=== PATIENT | female | born 1980 | race Caucasian/White ===

== ENCOUNTER 2020-08-14 08:20 | Outpatient (CLI) | payer OTHER, SELFPAY ==
[2020-08-14 08:55] LABS: Basophils Percent Auto 0.4 % (0.2-1.2); Eosinophils Absolute Auto 0.1 K/mm3 (0-0.3); Eosinophils Percent Auto 1.2 % (0-4.4); Hematocrit 40.6 % (37.0-47.0); Hemoglobin 13.3 g/dL (12.0-15.0); Immature Granulocyte Absolute 0.02 K/mm3 (0.00-0.031); Immature Granulocyte Percent A 0.4 % (0-0.5); Lymphocytes Absolute Auto 1.51 K/mm3 (0.9-3.2); Lymphocytes Percent Auto 31.2 % (18.3-44.2); Mean Corpuscular HGB Conc 32.8 g/dl (32-36); Mean Corpuscular Hemoglobin 30.3 pg (26-34); Mean Corpuscular Volume 92.5 fl (80-100); Mean Platelet Volume 10.3 fl (7.4-10.4); Monocytes Absolute Auto 0.3 K/mm3 (0.1-0.6); Monocytes Percent Auto 5.8 % (2.6-8.5); Platelet Count Result 207 k/mm3 (150-375); Red Blood Count 4.39 M/mm3 (4.2-5.4); Red Cell Distribution Width 12.8 % (11.5-14.5); White Blood Count 4.8 K/mm3 (4.5-10.0)
[2020-08-14 10:17] LABS: Vitamin D 25 Hydroxy 32.3 ng/mL
== END 2020-08-14 08:21 | disposition home or self-care (01) ==
PROVIDERS: PCP Nurse Practitioner; Visit Provider Nurse Practitioner
DX: Z00.00 Encounter for general adult medical examination without abnormal findings (principal); E55.9 Vitamin D deficiency, unspecified
CPT/HCPCS: 36415; 82306; 85025

== ENCOUNTER 2020-11-16 08:06 | Outpatient (CLI) | payer OTHER, SELFPAY ==
--- NOTE | ~2020-11-16 | MM_ITS ---
EXAMINATION: MM screening [facility] BI w tiffanie HISTORY: Screening TECHNIQUE: Craniocaudal and mediolateral oblique 3-D tomosynthesis images were obtained and synthetic 2-D images were generated. CAD analysis was submitted and interpreted. COMPARISON: Comparison to multiple prior studies sequentially, with oldest reviewed study dated 2016. BREAST PARENCHYMAL COMPOSITION: The breasts are heterogeneously dense, which may obscure small masses . FINDINGS: There is no evidence of suspicious mass, calcification, or architectural distortion to sugg est malignancy in either breast. There has been no suspicious interval change. IMPRESSION: 1. No mammographic evidence of malignancy. 2. Recommend routine screening mammography in one year. BI-RADS Category 1: Negative Reviewed, dictated and finalized at location A.
== END 2020-11-16 08:07 | disposition home or self-care (01) ==
LOC: ANHIMG 08:07
PROVIDERS: PCP Nurse Practitioner; Visit Provider Nurse Practitioner
DX: Z12.31 Encounter for screening mammogram for malignant neoplasm of breast (principal)
CPT/HCPCS: 77063; 77067

== ENCOUNTER 2021-09-07 10:28 | Emergency (ER) | payer OTHER, SELFPAY ==
--- NOTE | 2021-09-07 10:32 | ED.URI ---
HPI - URI/Sore Throat General Chief Complaint: Ear Stated Complaint: NECK/SINUS HEADACHE Time Seen by Provider: 09/07/21 10:34 Source: patient, RN notes reviewed and old records reviewed Mode of arrival: ambulatory Limitations: no limitations History of Present Illness HPI Narrative: 41 year old female who presents to [facility] care with complaints of headache in frontal area and behind her eyes for one week duration with sinus pressure and some ear pain. Patient denies any acute sinus drainage, admits to sinus pressure, stuffiness and some post nasal drainage. Patient reports that she has been taking Sudafed, Tylenol sinus and Advil for her symptoms, rates her pain 5/10. Patient states that she has some neck discomfort denies any injury to neck full mobility noted no selling of her gland noted. MD elicited complaint: rhinorrhea, nasal congestion, sinus pain and other (headache) Treatments prior to arrival: cold medicine and other (Sudafed) Related Data Home Medications Medication Instructions Recorded Confirmed L norgest/e.estradiol-e.estrad 1 tablet PO DAILY 09/07/21 09/07/21 [Bri] Allergies Allergy/AdvReac Type Severity Reaction Status Date / Time No Known Allergies Allergy Verified 09/07/21 10:33 Review of Systems Review of Systems: CONSTITUTIONAL: Denies fever, chills, or sweats. EYES: Denies visual changes, redness, or discharge. ENT: Denies rhinorrhea, congestion, sore throat, bilateral ear otalgia, sinus pressure CARDIOVASCULAR: Denies chest pain, palpitations, or edema. RESPIRATORY: Denies cough or dyspnea. GASTROINTESTINAL: Denies abdominal pain, nausea, vomiting, or diarrhea. GENITOURINARY: Denies dysuria or hematuria. SKIN: Denies rash or itching. MUSCULOSKELETAL: Denies back pain, some neck pain, no joint pain, or myalgia. NEUROLOGIC: Positive for frontal headache, no numbness, or weakness. PSYCHIATRIC: Positive for history of anxiety or depression. All systems reviewed & are unremarkable except as noted in HPI and below PMFSH Past Medical History Medical History Anxiety disorder, unspecified Breast nodule Family History Family History Other Carcinoma of colon Family history of cardiovascular disease Family history of chronic obstructive pulmonary disease Family history of dementia Social History Social History (Updated 09/07/21 @ 10:50 by Lupis Orona NP) Smoking status: Never smoker Alcohol intake: never Substance use: never Living arrangements: with family Gender identity (if verbalized by the patient): Female Comments At time of signature, agree with nursing past medical, surgical, social and family history. There is no relevant family history pertinent to the presenting complaint Exam Narrative: GENERAL: Ill-appearing, well-nourished, and in no acute distress. HEAD: Normocephalic, atraumatic. EYES: PERRLA and EOMI. ENT: Nares red with clear rhinorrhea and post nasal drainage no epistaxis. Mucous membranes moist.TM's normal with dull light reflex, throat with some redness no lesions or exudates or tonsil enlargement, post nasal discharge noted. NECK: Supple.no lymphadenopathy CHEST: Clear to auscultation. No respiratory distress.no cough or any tachypnea, SAO2 98% on room air. HEART: Regular rate and rhythm. No murmur heard. Normal peripheral pulses. ABDOMEN: Soft, nontender, nondistended, normal active bowel sounds. EXTREMITIES: Normal range of motion. No edema. SKIN: Warm, dry, no rash. NEURO: No focal deficits. Alert and oriented x3. Course Course Level of Care: Express Care Visit Vital Signs Vital signs: Vital Signs Temperature 36.8 C 09/07/21 10:35 Pulse Rate 103 H 09/07/21 10:35 Respiratory Rate 16 09/07/21 10:35 Blood Pressure 116/76 09/07/21 10:35 Pulse Oximetry 98 09/07/21 10:35 Temperature 36.8 C 09/07/21 10:3
[2021-09-07 10:35] VITALS: BP 116/76; PULSE 103; RESP 16; TEMP 36.8; O2SAT 98
== END 2021-09-07 11:03 | disposition home or self-care (01) ==
PROVIDERS: Emergency Provider Registered Nurse; PCP Nurse Practitioner
DX: J32.9 Chronic sinusitis, unspecified (principal)
CPT/HCPCS: 99213; G0463

== ENCOUNTER 2022-03-07 08:36 | Outpatient (CLI) | payer OTHER, SELFPAY ==
--- NOTE | ~2022-03-07 | MM_ITS ---
EXAMINATION: MM screening [facility] BI w tiffanie HISTORY: Screening mammogram TECHNIQUE: Craniocaudal and mediolateral oblique 3-D tomosynthesis images were obtained and synthetic 2-D images were generated. CAD analysis was submitted and interpreted. COMPARISON: 11/16/2020, 08/26/2018, 06/20/2016 BREAST PARENCHYMAL COMPOSITION: The breasts are heterogeneously dense, which may obscure small masses . FINDINGS: Scattered benign-appearing calcifications are present. There is no suspicious mass, calcifi cation, or architectural distortion to suggest malignancy in either breast. There has been no suspici ous interval change. IMPRESSION: 1. No mammographic evidence of malignancy. 2. Recommend routine screening mammography in one year. BI-RADS Category 2: Benign finding(s). Reviewed, dictated and finalized at location A.
== END 2022-03-07 08:37 | disposition home or self-care (01) ==
PROVIDERS: PCP Family Medicine; Visit Provider Nurse Practitioner
DX: Z12.31 Encounter for screening mammogram for malignant neoplasm of breast (principal)
CPT/HCPCS: 77063; 77067

== ENCOUNTER 2022-08-15 08:30 | Outpatient (CLI) | payer OTHER, SELFPAY ==
[2022-08-15 18:35] LABS: Basophils Percent Auto 0.6 % (0.2-1.2); Eosinophils Absolute Auto 0.1 K/mm3 (0-0.3); Hematocrit 41.1 % (37.0-47.0); Hemoglobin 13.3 g/dL (12.0-15.0); Immature Granulocyte Absolute 0.02 K/mm3 (0.00-0.031); Immature Granulocyte Percent A 0.4 % (0-0.5); Lymphocytes Absolute Auto 1.75 K/mm3 (0.9-3.2); Lymphocytes Percent Auto 33.9 % (18.3-44.2); Mean Corpuscular HGB Conc 32.4 g/dl (32-36); Mean Corpuscular Hemoglobin 30.4 pg (26-34); Mean Corpuscular Volume 93.8 fl (80-100); Mean Platelet Volume 10.9 fl (7.4-10.4); Monocytes Absolute Auto 0.3 K/mm3 (0.1-0.6); Monocytes Percent Auto 5.2 % (2.6-8.5); Neutrophils Percent Auto 58.9 % (45.5-73.1); Platelet Count Result 233 k/mm3 (150-375); Red Blood Count 4.38 M/mm3 (4.2-5.4); Red Cell Distribution Width 13.5 % (11.5-14.5); White Blood Count 5.2 K/mm3 (4.5-10.0)
[2022-08-15 18:55] LABS: Vitamin D 25 Hydroxy 22.5 ng/mL
[2022-08-15 20:23] LABS: Alanine Aminotransferase 45 U/L (6-35); Albumin Level 4.6 g/dL (3.5-5.1); Alkaline Phosphatase 62 U/L (38-126); Anion Gap 9 mmol/L (8-16); Aspartate Amino Transferase 32 U/L (14-36); Bilirubin,Total 0.6 mg/dL (0.2-1.3); Blood Urea Nitrogen 11 mg/dL (7-17); Calcium 9.4 mg/dL (8.4-10.2); Carbon Dioxide 24 mmol/L (22-30); Chloride 105 mmol/L (98-107); Cholesterol 230 mg/dL (0-200); Estimated Glomerular Filt Rate > 60; Glucose 73 mg/dL (65-110); HDL Direct 48 mg/dL; Potassium 4.9 mmol/L (3.4-5.0); Sodium 138 mmol/L (137-145); Triglycerides 178 mg/dL (<150)
[2022-08-15 20:32] LABS: LDL Cholesterol Direct 162 mg/dL
== END 2022-08-15 08:31 | disposition home or self-care (01) ==
LOC: ANHGOSHLAB 08:31
PROVIDERS: PCP Family Medicine; Visit Provider Nurse Practitioner
DX: Z13.6 Encounter for screening for cardiovascular disorders (principal); Z13.220 Encounter for screening for lipoid disorders; E55.9 Vitamin D deficiency, unspecified
CPT/HCPCS: 36415; 80053; 80061; 82306; 85025

== ENCOUNTER 2022-09-15 13:31 | Outpatient (CLI) | payer OTHER, SELFPAY ==
--- NOTE | ~2022-09-15 | US_ITS ---
EXAMINATION: US pelvic complete w TV DATE: 09/15/2022 14:14 INDICATION: Abnormal uterine and vaginal bleeding TECHNIQUE: Multiple transabdominal and endovaginal sonographic images of the pelvis were obtained. COMPARISON: None. FINDINGS: The uterus measures 7.2 x 3.7 x 4.2 cm. The endometrial complex measures 3 mm. The left ova ry is not visualized however no left adnexal abnormality is seen. The right ovary measures 2.4 x 1.1 x 1.9 cm. There is normal vascular flow in the right ovary. There is no free fluid in the pelvis. IMPRESSION: 1. No sonographic correlate for the patient's symptoms. Reviewed, dictated and finalized at location B.
== END 2022-09-15 13:32 | disposition home or self-care (01) ==
PROVIDERS: PCP Family Medicine; Visit Provider Registered Nurse
DX: N93.9 Abnormal uterine and vaginal bleeding, unspecified (principal)
CPT/HCPCS: 76830; 76856

== ENCOUNTER 2022-10-22 10:22 | Outpatient (CLI) | payer OTHER, SELFPAY ==
[2022-10-22 20:23] LABS: Erythrocyte Sedimentation Rate 12 mm/hr (0-20)
[2022-10-22 21:14] LABS: Uric Acid 6.5 mg/dL (2.5-7.5)
== END 2022-10-22 10:23 | disposition home or self-care (01) ==
LOC: ANHGOSHLAB 10:24
PROVIDERS: PCP Family Medicine; Visit Provider Nurse Practitioner Family
DX: Z13.89 Encounter for screening for other disorder (principal)
CPT/HCPCS: 36415; 84550; 85652

== ENCOUNTER → 2022-10-22 10:56 | Outpatient (CLI) | payer OTHER, SELFPAY ==
--- NOTE | ~2022-10-22 | XR_ITS ---
Right foot Technique: AP, oblique, and lateral views were obtained. Clinical History: Injury Findings: No acute fracture or dislocation is seen. Osseous alignment is anatomic. Joint spaces are p reserved without erosive or degenerative change. Soft tissues are unremarkable. Impression: Unremarkable right foot radiographs. Reviewed, dictated and finalized at location . Impression: Unremarkable right foot radiographs.
== END ==
PROVIDERS: PCP Family Medicine; Visit Provider Nurse Practitioner Family
DX: S99.921A Unspecified injury of right foot, initial encounter (principal); X58.XXXA Exposure to other specified factors, initial encounter
CPT/HCPCS: 73630

== ENCOUNTER 2023-03-13 19:07 | Emergency (ER) | payer OTHER, SELFPAY ==
--- NOTE | 2023-03-13 19:11 | ED.SKABFB ---
HPI - Skin/Abscess/Foreign Bdy General Chief complaint: Skin/Abscess/Foreign Body Stated complaint: Stomach and Back Rash Time Seen by Provider: 03/13/23 19:10 Source: patient and RN notes reviewed Mode of arrival: ambulatory Limitations: no limitations History of Present Illness HPI narrative: 42 year old female presents with concern fro rash under her bra. It is irritating, but not very itchy. She reports she took Benadryl at bedtime. She denies any triggers. Denies any laundry detergents, clothes. MD complaint: rash Related Data Allergies Allergy/AdvReac Type Severity Reaction Status Date / Time No Known Allergies Allergy Verified 03/13/23 19:14 Review of Systems Review of Systems: CONSTITUTIONAL: Denies malaise, chills, sweats, or fever. EYES: Denies redness, or discharge. ENT: Denies rhinorrhea, congestion, swollen lips, swollen tongue CARDIOVASCULAR: Denies chest pain, palpitations, or edema. RESPIRATORY: Denies cough or dyspnea. GASTROINTESTINAL: Denies abdominal pain, nausea, vomiting SKIN: Reports rash under her bra line MUSCULOSKELETAL: Denies joint pain or myalgia. NEUROLOGIC: Denies headache. All systems reviewed & are unremarkable except as noted in HPI and below PMFSH Past Medical History Medical History Anxiety disorder, unspecified Breast nodule Kidney stone Right foot injury Surgical History Surgical History History of removal of calculus of renal pelvis through percutaneous nephrostomy [place] teeth removed Family History Family History Other Carcinoma of colon Family history of cardiovascular disease Family history of chronic obstructive pulmonary disease Family history of dementia Social History Social History Smoking status: Never smoker Alcohol intake: never Substance use: never Lack of Transportation: No Lack of Food: Never True Current Housing: I Have Housing Concerned About Future Housing: No Difficulty Paying Gas/Electric Bills: No Difficulty Paying for Meds: No Currently Unemployed: No Education: Master's Degree or Higher Difficulty w/ Childcare or Family Care: No Living arrangements: with family Gender identity (if verbalized by the patient): Female Comments At time of signature, agree with nursing past medical, surgical, social and family history. There is no relevant family history pertinent to the presenting complaint Exam Narrative: GENERAL: Well-appearing, well-nourished, and in no acute distress. HEAD: Normocephalic, atraumatic. EYES: PERRLA, conjunctivae clear, and EOMI. ENT: Mucous membranes moist. Oropharynx without edema, erythema or lesions. NECK: Supple. No lymphadenopathy CHEST: Clear to auscultation. No respiratory distress. HEART: Regular rate and rhythm. SKIN: Warm, dry. Erythematous slightly raised rash under the bra line on both sides NEURO: Alert and oriented x3. PSYCH: Normal mood and affect Course Course Emergency Course: Patient is aware of diagnosis, understands and agrees to treatment plan. Anticipatory guidance given. Patient agrees to follow-up as directed and is aware of reasons to seek care at the emergency department. Portions of this record may have been created with voice recognition software Level of Care: Express Care Visit Vital Signs Vital signs: Reviewed. MDM - Skin/Abscess/Foreign Bdy MDM Narrative Medical decision making narrative: Does not appear at this time to be erythema multiforme, bullous, SJS, TEN; no evidence at this time to suggest RMSF, endocarditis or Lyme disease; patient looks well, nontoxic and is tolerating oral intake; no neurologic signs or symptoms; no headache, photophobia or neck pain; afebrile; appropriate for initial outpati
[2023-03-13 19:17] VITALS: BP 117/76; PULSE 94; RESP 16; TEMP 36.8; O2SAT 100
== END 2023-03-13 19:29 | disposition home or self-care (01) ==
PROVIDERS: Emergency Provider Nurse Practitioner; PCP Family Medicine
DX: L25.9 Unspecified contact dermatitis, unspecified cause (principal)
CPT/HCPCS: 99213; G0463

== ENCOUNTER 2023-07-20 07:16 | Outpatient (CLI) | payer OTHER, SELFPAY ==
--- NOTE | ~2023-07-20 | MM_ITS ---
EXAMINATION: MM screening [facility] BI w tiffanie HISTORY: Screening mammogram TECHNIQUE: Craniocaudal and mediolateral oblique 3-D tomosynthesis images were obtained and synthetic 2-D images were generated. CAD analysis was submitted and interpreted. COMPARISON: 03/07/2022, 11/16/2020, 08/26/2018 BREAST PARENCHYMAL COMPOSITION: The breasts are heterogeneously dense, which may obscure small masses . FINDINGS: Scattered benign-appearing calcifications are present. No suspicious mass, calcification, o r architectural distortion are identified in either breast to suggest malignancy. There has been no s uspicious interval change. IMPRESSION: 1. No mammographic evidence of malignancy. 2. Recommend routine screening mammography in one year. BI-RADS Category 2: Benign finding(s). Reviewed, dictated and finalized at location A. VER [facility] TURNER
== END 2023-07-20 07:17 | disposition home or self-care (01) ==
LOC: ANHIMG 07:17
PROVIDERS: PCP Family Medicine; Visit Provider Registered Nurse
DX: Z12.31 Encounter for screening mammogram for malignant neoplasm of breast (principal)
CPT/HCPCS: 77063; 77067

== ENCOUNTER 2023-09-14 08:59 | Outpatient (CLI) | payer OTHER, SELFPAY ==
[2023-09-14 17:09] LABS: Alanine Aminotransferase 56 U/L (6-35); Albumin Level 4.4 g/dL (3.5-5.1); Alkaline Phosphatase 76 U/L (38-126); Anion Gap 7 mmol/L (4-12); Aspartate Amino Transferase 41 U/L (14-36); Bilirubin,Total 0.7 mg/dL (0.2-1.3); Blood Urea Nitrogen 13 mg/dL (7-17); Calcium 9.5 mg/dL (8.4-10.2); Carbon Dioxide 26 mmol/L (22-30); Chloride 106 mmol/L (98-107); Cholesterol 112 mg/dL (0-200); Estimated Glomerular Filt Rate > 60; Glucose 90 mg/dL (65-110); HDL Direct 41 mg/dL; Potassium 4.8 mmol/L (3.4-5.0); Sodium 139 mmol/L (137-145); Triglycerides 89 mg/dL (<150)
[2023-09-14 17:12] LABS: Basophils Percent Auto 0.4 % (0.2-1.2); Eosinophils Absolute Auto 0.1 K/mm3 (0-0.3); Eosinophils Percent Auto 1.2 % (0-4.4); Hematocrit 42.4 % (37.0-47.0); Hemoglobin 13.6 g/dL (12.0-15.0); Immature Granulocyte Absolute 0.01 K/mm3 (0.00-0.031); Immature Granulocyte Percent A 0.2 % (0-0.5); Lymphocytes Absolute Auto 1.54 K/mm3 (0.9-3.2); Lymphocytes Percent Auto 30.6 % (18.3-44.2); Mean Corpuscular HGB Conc 32.1 g/dl (32-36); Mean Corpuscular Hemoglobin 30.2 pg (26-34); Mean Platelet Volume 11.1 fl (7.4-10.4); Monocytes Absolute Auto 0.3 K/mm3 (0.1-0.6); Monocytes Percent Auto 6.6 % (2.6-8.5); Neutrophils Absolute Auto 3.1 K/mm3 (1.3-6.7); Platelet Count Result 197 k/mm3 (150-375); Red Blood Count 4.51 M/mm3 (4.2-5.4); Red Cell Distribution Width 12.5 % (11.5-14.5)
[2023-09-14 17:20] LABS: LDL Cholesterol Direct 56 mg/dL
[2023-09-14 17:26] LABS: Hemoglobin A1C 5.5 % (<5.7)
[2023-09-14 17:38] LABS: Vitamin D 25 Hydroxy 39.9 ng/mL
== END 2023-09-14 09:00 | disposition home or self-care (01) ==
LOC: ANHGOSHLAB 09:00
PROVIDERS: PCP Family Medicine; Visit Provider Nurse Practitioner Family
DX: Z00.00 Encounter for general adult medical examination without abnormal findings (principal); E53.8 Deficiency of other specified B group vitamins; E78.5 Hyperlipidemia, unspecified; R73.03 Prediabetes; E55.9 Vitamin D deficiency, unspecified; Z13.29 Encounter for screening for other suspected endocrine disorder
CPT/HCPCS: 36415; 80053; 80061; 82306; 82607; 83036; 84443; 85025

== ENCOUNTER 2024-09-19 09:15 | Outpatient (CLI) | payer OTHER, SELFPAY ==
--- OUTSIDE RECORDS SUMMARY | 2024-09-19 10:02 | XMS_ITS | Clinical Summary ---
Author Organization [facility] Address [address] [place] [address] Care Team Providers Care Senior Vice President & General Counsel Name Role Phone Mariola Munroe MD Primary Care Provider Source Comments [facility],non-owned Affiliates and Associated Physician Practices is amultiple site organization consisting of ambulatory clinics and hospital sitesin [place], [place], [place] and [place]. This disclosure is being madepursuant to the Care Everywhere program and may not contain all information available regarding this patient. Last updated 18.[facility] Allergies No known active allergies Medications * Be aware that medications may not be up to date on this document. Alwaysverify current medications with the patient. Medication Sig Dispensed Refills Start Date End Date Status Citalopram Hydrobromide (CELEXA PO) Active Levonorgest-Eth Estrad 91-Day (SEASONIQUE PO) Active atorvastatin (Lipitor) 10 MG tablet 08/18/2022 Active traMADol (Ultram) 50 MG tablet Take 1 (one) tablet by mouth every 6 hours as needed for Pain 12 tablet 12/24/2023 Active Additional Information Patient not taking.Reported on 01/06/2024 Active Problems Problem Noted Date Diagnosed Date Malignant melanoma of left knee 12/07/2023 Social History Tobacco Use Types Packs/Day Years Used Date Smoking Tobacco: Never Smokeless Tobacco: Never Tobacco Cessation:Counseling Given: Not Answered Alcohol Use Standard Drinks/Week Comments Never 0 (1 standard drink = 0.6 oz pur e alcohol) AUDIT-C Answer Date Recorded Q1: How often do you have a drink containing alcohol? Never 12/24/2023 Q2: How many drinks containi ng alcohol do you have on a typical day when you are drinking? Patient does not drink Q3: How often do you have si x or more drinks on one occasion? Never 12/24/2023 Sex and Gender Information Value Date Recorded Sex Assigned at Female 11/26/2023 4:47 PM CDT Gender Identity Female 11/26/2023 4:47 PM CDT Sexual Orientation Not on file Last Filed Vital Signs Vital Sign Reading Time Taken Comments Blood Pressure 114/80 01/06/2024 9:39 AM CDT Pulse 97 01/06/2024 9:39 AM CDT Temperature 37 C (98.6 F) 01/06/2024 9:39 AM CDT Respiratory Rate 6 12/24/2023 10:35 AM CDT Oxygen Saturation 98% 01/06/2024 9:39 AM CDT Inhaled Oxygen Concentration - - Weight 70 kg (154 lb 6.4 oz) 01/06/2024 9:39 AM CDT Height 162.6 cm (5' 4 ) 01/06/2024 9:39 AM CDT Body Mass Index 26.5 01/06/2024 9:39 AM CDT Plan of Treatment Upcoming Encounters Date Type Department Care Team (Late st Contact Info) Description 01/09/2025 1:15 PM CDT Office Visit [facility] - General Surgery [address] [place] [phone] Rodrigue Prakash MD [address] [facility] [address] [place], [place] [id number] Health Maintenance Due Date Last Done Comments COLOGUARD (AGES 45-75) - COL ON CA SCREENING 1978 COLON MONITORING 1978 COLONOSCOPY - COLON CA SCREENING 1978 CT COLONOGRAPHY - COLON CA SCREENING 1978 Colorectal Cancer Screening 1978 FIT - COLON CA SCREENING 1978 FLEX SIG - COLON CA SCREENING 1978 MAMMOGRAM 1978 PAP SMEAR 1978 HIV SCREENING 1993 HEPATITIS C SCREENING 06/02/1996 DTAP/TDAP/TD VACCINES (1 - Tdap) 1997 HEPATITIS B VACCINE (1 of 3 - 19+ 3-dose series) 1997 COVID-19 VACCINE (2023-2 5 season) 2024 INFLUENZA VACCINE (#1) 2024 DEPRESSION SCREENING 06/15/2024 SCREENING FOR DIABETES 12/20/2026 12/21/2023 ZOSTER VACCINE (1 of 2) 2028 HIB VACCINE Aged Out No longer eligi ble based on patient's age to complete this topic HPV VACCINE Aged Out No longer eligi ble based on patient's age to complete this topic MENINGOCOCCAL (Group B) VACC INE SHARED DECISION-MAKING Aged Out No longer eligibl e based on patient's age to complete this topic MENINGOCOCCAL GROUPS A/C/Y/W VACCINE Aged Out No longer eligible b ased on patient's age to complete this topic PNEUMOCOCCAL VACCINE Aged Out No long er eligible based on patient's age to complete this topic Procedures Procedure Name Priority Date/Time Associated Diagnosis Comments COMPREHENSIVE METABOLIC PANEL Routine 12/21/2023 3:17 PM CDT Malignant melanoma of left knee from Last 3 Months or Most Recently Relevant to Health Maintenance Results * (ABNORMAL) COMPREHENSIVE METABOLIC PANEL (12/21/2023 3:17 PM CDT) BUN 12 7 - 26 mg/dL 12/21/2023 5:20 PM [facility] Creatinine 0.71 0.56 - 0.96 mg/dL 12/21/2023 5:20 PM [facility] Sodium 141 136 - 145 mmol/L 12/21/2023 5:20 PM [facility] Potassium 4.0 3.5 - 4.5 mmol/L 12/21/2023 5:20 PM [facility] Chloride 107 98 - 107 mmol/L 12/21/2023 5:20 PM [facility] CO2 24 22 - 29 mmol/L 12/21/2023 5:20 PM [facility] Glucose 74 70 - 115 mg/dL 12/21/2023 5:20 PM [facility] Calcium 9.8 8.4 - 10.2 mg/dL 12/21/2023 5:20 PM [facility] Protein Total 7.8 6.0 - 8.3 g/dL 12/21/2023 5:20 PM [facility] Albumin 4.6 3.4 - 5.0 g/dL 12/21/2023 5:20 PM [facility] Bilirubin Total 0.7 0.2 - 1.2 mg/dL 12/21/2023 5:20 PM [facility] Alkaline Phosphatase 88 40 - 150 U/L 12/21/2023 5:20 PM [facility] ALT 58(H) 5 - 55 U/L 12/21/2023 5:20 PM [facility] AST 23 5 - 34 U/L 12/21/2023 5:20 PM [facility] Anion Gap 10 6 - 16 12/21/2023 5:20 PM [facility] BUN/Creatinine Ratio 17 7 - 23 12/21/2023 5:20 PM [facility] Osmolality Calculated 290 275 - 295 mOsm/kg 12/21/2023 5:20 PM [facility] Albumin/Globulin Ratio 1.4 1.1 - 2.3 12/21/2023 5:20 PM [facility] eGFR by CKD-EPI >90 >=90 mL/min/1.7 3 m2 12/21/2023 5:20 PM [facility] Blood BLOOD SPECIMEN / Unknown Lab Venipuncture / Unknown 12/21/2023 3:17 PM CDT 12/21/2023 4:43 PM CDT Rodrigue Prakash MD LAB - CHEMISTRY [facility] [address] [place] [address], [facility] [phone] from Last 3 Months or Most Recently Relevant to Health Maintenance Care Teams Senior Vice President & General Counsel Relationship Specialty Start Date End Date Mariola Munroe MD [address] [place] [address] PCP - General Family Medicine 12/04/23
--- OUTSIDE RECORDS SUMMARY | 2024-09-19 10:02 | XMS_ITS | Encounter Summary ---
Author Organization [facility] Address [address] [place] [address] Care Team Providers Care Board Hammer Operator Name Role Phone Mariola Munroe MD Primary Care Provider Encounter Details Date Type Department Care Team (Late st Contact Info) Description 02/26/2024 Lab Requisition [facility] - DermPath Lab [address] [place] [address] Nasim Hernnádez MD [facility] DERMATOLOGY [address] [place] [address] Neoplasm of uncertain behavior of skin Social History Tobacco Use Types Packs/Day Years Used Date Smoking Tobacco: Never Smokeless Tobacco: Never Alcohol Use Standard Drinks/Week Comments Never 0 [...] PM CDT Sexual Orientation Not on file documented as of this encounter Functional Status Functional Status Response Date of Assess ment Is person deaf or have serious hearing difficult y? No 12/24/2023 Is person blind or have serious difficulty seein g? No 12/24/2023 Does person have serious dif ficulty walking/climbing stairs? No 12/24/2023 Does person have difficulty dressing/bathing? No 12/24/2023 Cognitive Status Response Date of Assessm ent Does person have difficulty concentrating/remembering/making decisions? No 12/24/2023 documented as of this encounter Plan of Treatment Upcoming Encounters Date Type Department Care Team (Late st Contact Info) Description 01/09/2025 1:15 PM CDT Office Visit [facility] - General Surgery [address] [place] [phone] Rodrigue Prakash MD [address] [facility] [address] [place] [id number] documented as of this encounter Procedures Procedure Name Priority Date/Time Associated Diagnosis Comments DERMATOPATHOLOGY Routine 02/26/2024 12:0 0 AM CDT Neoplasm of uncertain behavior of skin documented in this encounter Results * DERMATOPATHOLOGY (02/26/2024 12:00 AM CDT) Case Report Dermatopathology Report Case: [id number] Authorizing Provider: Nasim Hernández MD Collected: 02/26/2024 12:00 AM Ordering Location: [facility] Physician [facility] - Received: 02/29/2024 12:11 PM DermPath Lab Pathologist: Erich Lopez MD Specimen: Skin, left lateral abdomen 4 2:50 PM CDT DERMATOPATHOLOGY LABORATORY Final Diagnosis Specimen A. 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 The specimen consists of a shave biopsy measuring 10x9x1 mm. Jar 0. 4 2:50 PM CDT DERMATOPATHOLOGY LABORATORY Microscopic Description Specimen A. SKIN, left lateral abdomen: This is a compound nevus. There is a lentiginous proliferation of melanocytes between nevus nests of cells along the dermal-epidermal junction. There is underlying lamellar fibroplasia of the papillary dermis. The intradermal component is bland in appearance and matures with depth. (Compound Edmundo's Nevus) 4 2:50 PM CDT DERMATOPATHOLOGY LABORATORY Disclaimer An external and internal positive and negative controls are appropriate for the histochemical, immunohistochemical and immunofluorescence stain(s) in this case (if any), except where stated explicitly. The performance characteristics of the stain(s) cited in this report were developed and its performance characteristic determined by the Dermatopathology Laboratory at [facility], directed by Dr. Chetan Lopez. These tests need not be, and therefore are not, approved by the [place] Food and Drug Administration. The tests are used for clinical purposes. Billing Codes Specimen Charges Stain Charges 38744 1 4 2:50 PM CDT DERMATOPATHOLOGY LABORATORY Embedded Images 4 2:50 PM CDT DERMATOPATHOLOGY LABORATORY Pathology/Cytolog y TISSUE SPECIMEN FROM SKIN / Unknown 02/26/2024 02/29/2024 12:11 PM CDT Nasim Hernández MD LAB - PATHOLOGY/CYTO LOGY ORDERABLES DERMATOPATHOLOGY LABORATORY [facility] - Department of Dermatology [address] [phone] documented in this encounter Visit Diagnoses Diagnosis Neoplasm of uncertain behavior of skin documented in this encounter Care Teams Board Hammer Operator Relationship Specialty Start Date End Date Mariola Munroe MD [facility] [address] [address] PCP - General Family Medicine 12/04/23 documented as of this encounter
[2024-09-19 12:36] LABS: Basophils Percent Auto 0.2 % (0.2-1.2); Eosinophils Percent Auto 0.7 % (0-4.4); Hematocrit 41.8 % (37.0-47.0); Hemoglobin 13.5 g/dL (12.0-15.0); Immature Granulocyte Absolute 0.02 K/mm3 (0.00-0.031); Immature Granulocyte Percent A 0.4 % (0-0.5); Lymphocytes Absolute Auto 1.59 K/mm3 (0.9-3.2); Lymphocytes Percent Auto 29.7 % (18.3-44.2); Mean Corpuscular HGB Conc 32.3 g/dl (32-36); Mean Corpuscular Hemoglobin 30.3 pg (26-34); Mean Corpuscular Volume 93.9 fl (80-100); Mean Platelet Volume 10.5 fl (7.4-10.4); Monocytes Absolute Auto 0.4 K/mm3 (0.1-0.6); Monocytes Percent Auto 6.5 % (2.6-8.5); Neutrophils Absolute Auto 3.4 K/mm3 (1.3-6.7); Neutrophils Percent Auto 62.5 % (45.5-73.1); Platelet Count Result 201 k/mm3 (150-375); Red Blood Count 4.45 M/mm3 (4.2-5.4); Red Cell Distribution Width 12.6 % (11.5-14.5); White Blood Count 5.4 K/mm3 (4.5-10.0)
[2024-09-19 12:39] LABS: Alanine Aminotransferase 36 U/L (6-35); Albumin Level 4.6 g/dL (3.5-5.1); Alkaline Phosphatase 75 U/L (38-126); Anion Gap 11 mmol/L (4-12); Aspartate Amino Transferase 40 U/L (14-36); Bilirubin,Total 0.6 mg/dL (0.2-1.3); Blood Urea Nitrogen 12 mg/dL (7-17); Calcium 9.2 mg/dL (8.4-10.2); Carbon Dioxide 25 mmol/L (22-30); Chloride 105 mmol/L (98-107); Cholesterol 127 mg/dL (0-200); Estimated Glomerular Filt Rate > 60; Glucose 93 mg/dL (65-110); HDL Direct 48 mg/dL; Potassium 4.1 mmol/L (3.4-5.0); Sodium 141 mmol/L (137-145); Triglycerides 102 mg/dL (<150)
[2024-09-19 12:50] LABS: LDL Cholesterol Direct 54 mg/dL
[2024-09-19 13:03] LABS: Vitamin D 25 Hydroxy 18.5 ng/mL
== END 2024-09-19 09:16 | disposition home or self-care (01) ==
LOC: ANHGOSHLAB 09:16
PROVIDERS: PCP Family Medicine; Visit Provider Nurse Practitioner Family
DX: E78.5 Hyperlipidemia, unspecified (principal); E55.9 Vitamin D deficiency, unspecified; F41.9 Anxiety disorder, unspecified
CPT/HCPCS: 36415; 80053; 80061; 82306; 84443; 85025

== ENCOUNTER 2024-10-06 09:57 | Outpatient (CLI) | payer OTHER, SELFPAY ==
--- NOTE | ~2024-10-06 | MM_ITS ---
EXAMINATION: MM screening samantha BI w tiffanie HISTORY: Screening TECHNIQUE: Craniocaudal and mediolateral oblique 3-D tomosynthesis images were obtained and synthetic 2-D images were generated. CAD analysis was submitted and interpreted. COMPARISON: Comparison to multiple prior studies sequentially, with oldest reviewed study dated 11/2016. BREAST PARENCHYMAL COMPOSITION: Dense: The breasts are heterogeneously dense, which may obscure small masses FINDINGS: There is no evidence of suspicious mass, calcification, or architectural distortion to sugg est malignancy in either breast. There has been no suspicious interval change. IMPRESSION: 1. No mammographic evidence of malignancy. 2. Recommend routine screening mammography in one year. BI-RADS Category 1: Negative Reviewed, dictated and finalized at location A.
--- OUTSIDE RECORDS SUMMARY | 2024-10-06 11:08 | XMS_ITS ---
Author Organization [facility] Address [address] [place], [place] [id number] Care Team Providers Care Electric Meter Reader Name Role Phone April Munroenolvianida Unavailable Unavaila MITA Rodriguez Unavailable [phone] REASON FOR VISIT Right foot swollen, arthritis Medications Medication SIG (Take, Route, Frequency, Duration) Notes Start Date End Date Status Atorvastatin Calcium 10 MG Oral for 90 Days Active Cecily 0.35 MG Oral for 84 Days Active Citalopram Hydrobromide 10 MG Oral for 90 Days Active Social History Tobacco Use: Social History Observation Description Date Details (start date - stop date) Never Smoker NA - NA Tobacco Control (Standard) Question Answer Notes Tobacco use: Nonsmoker Vital Signs Height 64 in 06/09/2024 Weight 150 lbs 06/09/2024 BMI 25.74 kg/m2 06/09/2024 Height-cm 162.56 cm 06/09/2024 Weight-kg 68.04 kg 06/09/2024 Encounters Encounter Location Date Provider Diagnosis [facility] [address] [place], [place] [id number] 06/09/2024 MITA HAIRSTON Hallux limitus of right foot M20.5X1 ; Hallux valgus (acquired), right foot M20.11 ; Osteophyte, right foot M25.774 ; Primary osteoarthritis, right ankle and foot M19.071 and Pain in right foot M79.671 Assessments Encounter Date Diagnosis (ICD Code) Assessment Notes Treatment Notes Treatment Clinical Notes Section Notes 06/09/2024 Hallux limitus of right foot (ICD-10 - M20.5X1) Surgical correction was discussed. The patient opted not to proceed at this time. 06/09/2024 Hallux valgus (acquired), right foot (ICD-10 - M20.11) 06/09/2024 Osteophyte, right foot (ICD-10 - M25.774) 06/09/2024 Primary osteoarthritis , right ankle and foot (ICD-10 - M19.071) 06/09/2024 Pain in right foot (ICD-10 - M79.671) Plan Of Treatment Treatment Notes Assessment Notes Hallux limitus of right foot Surgical co rrection was discussed. The patient opted not to proceed at this time. Next Appt Details Follow Up: prn, Reason: Progress Notes * CHARLEE ChapisDOB:1980 (44 yo F)Acc No.[id number]:06/09/2024 Patient: Chapis WHITAKER Provider: uGru Hairston DPM :1980 A ge:44 Y S ex:Female Date:06/09/2024 Address:[address] [place], [place] [id number] Subjective: * Chief Complaints: * R ight foot swollen, arthritis * HPI: H PI: New Complaint E stablished patient presents with a new complaint. Patient complains of an issue to the medial side and top of her right foot. She states she had the flu May 19 and the same day started having a lot of numbness, tingling and swelling in her foot. Patient denies any injury. MA: sea. * ROS: G eneral / Constitutional: Patient denies c hange in appetite, chills, fatigue, fever.? C ardiovascular: Patient denies h air loss on leg, leg or foot ulcers, extremities cool. M usculoskeletal: Patient denies b roken foot bone, ankle sprain, gout. P atient complains of g ait (walking problems), bunions, joint pain. S kin: Patient denies a thletes foot, fungal nails, rash, ulcerations. N eurologic: Patient denies B urning/Tingling, Numbness, gait abnormality. * Medical History: * Surgical History: k dario stone removed * Hospitalization/Major Diagno stic Procedure: * Social History: T obacco Use: T obacco Control (Standard) T obacco use: N onsmoker D rugs/Alcohol: D o you drink alcohol?: No. * Medications: T akingAtorvastatin Calcium 10 MG Tablet Oral Citalopram Hydrobromide 10 MG Tablet Oral Cecily 0.35 MG Tablet Oral Medication List reviewed and reconciled with the patientTaking Atorvastatin Calcium 10 MG Tablet Oral Taking Citalopram Hydrobromide 10 MG Tablet Oral Taking Cecily 0.35 MG Tablet Oral Medication List reviewed and reconciled with the patient Objective: * Vitals: W t:150lbs, Wt-k.04 kg, Ht: 64 in, Ht-cm: 162.56 cm, BMI:25.74Index, Body Surface Area: 1.75. * Examination: C onstitutional: Constitutional T he patient is awake, alert, well developed, well groomed and well nourished.. M usculoskeletal: Muscle Strength M uscle strength is 5/5 in regards to dorsiflexion, plantarflexion, inversion, and eversion in bilateral lower extremities.. Pain on palpation T here is pain on palpation of the first metatarsal head right foot.. Hallux Abducto Valgus T here is mild lateral deviation of the right hallux. There is a small medial and moderate dorsal prominence noted right 1st metatarsal head. There is decreased dorsiflexion 1st MPJ and pain with end range of plantar flexion.. Foot Structure T he foot structure is noted to be, normal, bilaterally. Gait T here is normal gait noted. N eurologic: Mesa-Weinstin 5.07 monofilament I ntact protective sensation via 5.07 g swmf bilateral. Gross sensation G ross sensation is intact to light touch..? D ermatologic: Skin findings: S kin is warm, dry, supple with no breaks in the skin.. Nail pathology: N ails 1-5 bilateral are normal in appearance and thickness. No discoloration.. Hyperkeratotic Skin Lesion T here is no evidence of hyperkeratosis. V ascular: Dorsalis pedis pulse: 2 /4, bilateral, bilateral. Posterior tibial pulse: 2 /4, bilaterally. Capillary refill: l ess than 3 seconds, bilaterally, bilaterally. Edema: N o edema noted b ilateral. ? R adiographs: Right Foot 3 views weight bearing right foot. Noted decreased 1st MPJ joint space. Noted elevated 1st metatarsal. Noted exostosis on base of hallux and dorsum of 1st metatarsal head that have increased in size. Noted mild increase in 1st IM angle. Noted rectus hallux.. Assessment: * Assessment: 1. H allux valgus (acquired), right foot - M20.11 (Primary) 2 . H allux limitus of right foot - M20.5X1 3 . O steophyte, right foot - M25.774 ?4. P rimary osteoarthritis, right ankle and foot - M19.071 5 . P ain in right foot - M79.671 Plan: * Treatment: * Immunizations: Immunization record has been reviewed and updated. * Procedure Codes: 7 3630 X-RAY EXAM OF FOOT, Modifiers: RT * Follow Up: p rn * Billing Information: * Visit Code: 21232 Office Visit, Est Pt., Level 3. * Procedure Codes: 44317 X-RAY EXAM OF FOOT. Modifiers: RT * Sign off status: Completed true * Provider: Guru Hairston DPM Date: 08/10/2023 Generated for Yifan pleitez/Valerie/Vicenteitting on: 0 10/06/2024 11:08 AM CDT History and Physical Notes * HPI (History of Present Illness) Category Sub-Category Detail Notes Category Not es HPI New Complaint Established alla ent presents with a new complaint. Patient complains of an issue to the medial side and top of her right foot. She states she had the flu May 19 and the same day started having a lot of numbness, tingling and swelling in her foot. Patient denies any injury. MA: harrison Examination Category Sub-Category Detail Notes Category Not es Dermatologic Skin findings: Skin is warm, dr y, supple with no breaks in the skin. Nail pathology: Nails 1-5 bilateral are normal in appearance and thickness. No discoloration. Hyperkeratotic Skin Lesion There is no e vidence of hyperkeratosis Neurologic Mesa-Weinstin 5.07 monofilamen t Intact protective sensation via 5.07 g swmf bilateral Gross sensation Gross sensation is i ntact to light touch. Vascular Dorsalis pedis pulse: 2/4, bilateral, tay ateral Edema: No edema noted bilat eral Capillary refill: less than 3 seconds, bilaterally, bilaterally Posterior tibial pulse: 2/4, bilaterally Musculoskeletal Muscle Strength Muscle strength is 5/5 in regards to dorsiflexion, plantarflexion, inversion, and eversion in bilateral lower extremities. Pain on palpation There is pain on pal pation of the first metatarsal head right foot. Hallux Abducto Valgus There is mild late ral deviation of the right hallux. There is a small medial and moderate dorsal prominence noted right 1st metatarsal head. There is decreased dorsiflexion 1st MPJ and pain with end range of plantar flexion. Foot Structure The foot structure i s noted to be, normal, bilaterally Gait There is normal gait noted Constitutional Constitutional The patient is a wake, alert, well developed, well groomed and well nourished. Radiographs Right Foot 3 views weight b earing right foot. Noted decreased 1st MPJ joint space. Noted elevated 1st metatarsal. Noted exostosis on base of hallux and dorsum of 1st metatarsal head that have increased in size. Noted mild increase in 1st IM angle. Noted rectus hallux.
--- OUTSIDE RECORDS SUMMARY | 2024-10-06 11:08 | XMS_ITS | Continuity of Care Document ---
Author Name [facility] Organization [facility] Care Team Providers Care Mail Processor Name Role Phone [facility] Unavailable Unavailable Problems Combined list of problems from Department of Defense and Veterans Affairs facilities. It does not include entries that were removed or entered in error. Problem Status Onset Date Problem Type Date of Resolution Comments Source Ed Initial Visit Warning Signs In Early Active Condition DoD Test Positive Inactive Condition DoD anxiety Active Condition DoD drip or drainage down throat from above Active Condition DoD visit for: administrative purpose Inactive Condition DoD Aftercare Following Surgery Active Condition DoD SEBACEOUS CYST Inactive Condition DoD SKIN ABSCESS OF THE NECK Inactive Condition DoD COMPLICATIONS: ANEMIA Active Condition DoD visit for: exam high-risk preg from assisted reproductive technology Active Condition DoD Supervision Of Normal Inactive Condition DoD NORMAL CHECKUP - SECOND TRIMESTER Inactive Condition DoD Education Initial Visit Active Condition DoD nausea Inactive Condition DoD WITH THREATENED Inactive Condition DoD Supervision Of Normal First Inactive Condition DoD Gynecologic Services Artificial Insemination Inactive Condition DoD OVARY NONINFLAMMATORY DISORDER Active Condition DoD OVARIAN CYST Active Condition DoD visit for: investigation / testing Active Condition DoD Pelvic Exam (Internal) Inactive Condition DoD Cervical Pap Smear Active Condition DoD Cervical Pap Smear Unsatisfactory Active Condition DoD Removal Of Sutures Inactive Condition @ 0840 Patient presented for suture removal to left side of neck following cyst removal 8 days ago. There is no redness, swelling or drainage noted with wound. There is some scabbing so have patient applying H2O2 and normal saline saturated gauze to neck. PATSY Reece checked wound and approved suture removal followed up with steri-strips. Removed 5 sutures without difficulty. Applied banzoin and steri-strips. Gave patient steri-strips and wound care instructions and she acknowledged understanding. Released. DoD EPIDERMAL INCLUSION CYST Inactive Condition After care instructions given DoD visit for: fertility testing Active Condition DoD Patient Ed Facilitate Preg Discuss Timing Of Peak Fertility Inactive Condition DoD FEMALE INFERTILITY SECONDARY Active Condition DoD Patient Education Active Condition DoD Patient Counseling: Active Condition Patient need clomid she is in day 3 of her cycle DoD FEMALE INFERTILITY Active Condition DoD DEPRESSION Active Condition DoD CYSTITIS ACUTE Inactive Condition LNMP 02/24/06 D oD AXIS V GLOBAL ASSESS OF FUNCTIONING (GAF) SCALE ___ (100-0) Active Condition 75 - highe st in past year - 95 DoD AXIS IV PSYCHOSOCIAL AND ENVIRONMENTAL PROBLEMS Active Condition Recent move to new area. Lack of social support. 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 Usually due to being away or having to fly in an airplaine. DoD FEMALE INFERTILITY Active Condition G Ave referral to urology. DoD Preventive Medicine Establ. 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, PANIC ATTACKS Active Condition DoD ROUTINE GYNECOLOGICAL EXAM WITH CERVICAL PAP SMEAR Inactive Condition pap smear ordered in [facility] visit for: screening exam malignant neoplasm breast Inactive Condition taught and recommended monthly self breast exams [facility] Inquiry And Counseling: Family Planning Inactive Condition [facility] visit for: screening exam for malignant neoplasm cervix Inactive Condition pap smear ordered in [facility] Medications Combined list of outpatient medications from Department of Defense and Veterans Affairs facilities.Medications provided include 1) outpatient medications from the last 15 months, and 2) patient-reported medications. Medication Details Route Status Patient Instructions Prescription Expires Prescription Number Last Dispense Date Ordering Provider Order Date Order Qty Source ATORVASTATI N CALCIUM (ATORVASTAT IN CALCIUM), 10 MG, TABLET, ORAL, APOTEX CHAIM, 1000 ea. BOTTLE Active [id number] 4 2023 90 Pharmac y Data Transac tion Service Facilit y ATORVASTATI N CALCIUM (atorvastat in calcium), 10 MG, TABLET, ORAL, [facility] [employer], 1000 ea. BOTTLE Cancele d [id number] : 2023 0 Pharmac y Data Transac tion Service Facilit y ATORVASTATI N CALCIUM (atorvastat in calcium), 10 MG, TABLET, ORAL, [facility]ACE[facility], 1000 ea. BOTTLE Active [id number] 4 2023 90 Pharmac y Data Transac tion Service Facilit y CITALOPRAM HBR (CITALOPRAM HYDROBROMID E), 10MG, TABLET, ORAL, MYLAN, 500 ea. BOTTLE Cancele d [id number] : 2023 0 Pharmac y Data Transac tion Service Facilit y CITALOPRAM HBR (CITALOPRAM HYDROBROMID E), 10MG, TABLET, ORAL, MYLAN, 500 ea. BOTTLE Active [id number] 4 2023 90 Pharmac y Data Transac tion Service Facilit y CITALOPRAM HBR (CITALOPRAM HYDROBROMID E), 10MG, TABLET, ORAL, MYLAN, 500 ea. BOTTLE Active [id number] 2023 90 Pharmac y Data Transac tion Service Facilit y SLYND (drospireno ne), 4 MG (28), TABLET, ORAL, [place]IS [place], 28 ea. BLIST PACK Active [id number] 2023 84 Pharmac y Data Transac tion Service Facilit y SLYND (drospireno ne), 4 MG (28), TABLET, ORAL, [place]EL[place]IS [place], 28 ea. BLIST PACK Active [id number] 2023 84 Pharmac y Data Transac tion Service Facilit y Allergies, Adverse Reactions, Alerts Combined list of allergies from Department of Defense and Veterans Affairs facilities. It does not include entries that were removed or entered in error. Substance Category Reaction Severity Reaction type Status Date Reported Comments Source No Known Allergies Drug allergy (disorder) active 12/15/2007 [facility] Immunizations Combined list of available immunizations from the Department of Defense and Veterans Affairs facilities. Immunization Series Date Given Administered By Site Reaction Lot Number CVX Code Drug Parts Interpreter Status Comments Source COVID-19, mRNA, LNP-S, PF, 100 mcg or 50 mcg dose 2020 COLLINS, [employer] (MOD) Not Given COVID-19, mRNA, LNP-S, PF, 100 mcg or 50 mcg dose DoD Encounters Combined list of: 1) Encounters from Department of Veterans Affairs facilities going backup to the last 18 months, not all VA inpatient encounters are included; 2) Encounters from the Department of Defense facilities going backup to 280 months. Location Location Details Encounter Type Encounter Number Reason For Visit Attending Provider ADM Date DC Date Status Disposition Source JANELL Romero(Sedimentationist [employer]) OUTPATIENT [id number] annual pap TOYACAILIN Castillo A 09/16 Released w/o Limitations JANELL Romero(Sedimentationist [employer]) [facility]) OUTPATIENT [id number] ADULT FEMALE PE//ANX IETY YAMILETH MAGALLON 02/12 Released w/o Limitations [facility] [address]) [facility]) TELE CONSULT [id number] lab results YAMILETH MAGALLON 02/24 [facility] [address]) [facility]) OUTPATIENT [id number] F/U//LA BS RESULTS YAMILETH MAGALLON 03/24 Released w/o Limitations [facility] [address]) [facility] Infertili ty) OUTPATIENT [id number] Female inferti ISMAEL Richardson 05/06 Released w/o Limitations [facility]Gy n [facility] l[facility]) [facility]) TELE CONSULT [id number] Patient need Clomid refill she is in the 1st day of her period. UGO MULLINS 07/28 [facility] n [facility]) [facility]) OUTPATIENT [id number] DAY 10 U/S ISMAEL GARCIA 08/07 Released w/o Limitations [facility]Gy n Inferti lity) [facility] Infert[facility] ty) OUTPATIENT [id number] Patient need teachin g for self injecti on UGO MULLINS 08/07 Released w/o Limitations [facility]Gy n Inferti lity) [facility]imentationist Infertili ty) TELE CONSULT [id number] Patient started period yesterd ay need clomid refill UGO MULLINS E 08/24 [facility]) [facility]iment[facility]ist Infertili ty) OUTPATIENT [id number] DAY 10 U/S ISMAEL GARCIA 09/02 Released w/o Limitations [facility] n [facility]i [facility]ity) [facility]imentationist Infertili ty) TELE CONSULT [id number] Patient need sterile l cup for IUI. UGO MULLINS E 09/03 [facility] n Inf[facility]i [facility]ity) [facility]imentationist Infertili ty) OUTPATIENT [id number] IUI ISMAEL GARCIA 09/04 Released w/o Limitations [facility] n [facility]) [facility]imentationist Infertili ty) TELE CONSULT [id number] Patient need clomid refill to start today UGO MULLINS E 09/21 [facility]) [facility]imentationist Infertili ty) TELE CONSULT [id number] Patient need hcg results UGO MULLINS E 09/28 [facility]) [facility]imentationist Infertili ty) TELE CONSULT [id number] Patient started her cycle need medicat ion UGO MULLINS E 10/27 [facility]) [facility]ist Infertili ty) OUTPATIENT [id number] DAY 10 U/S ISMAEL GARCIA 11/05 Released w/o Limitations [facility] n Inf[facility]i [facility]) [facility]imentationist Infertili ty) OUTPATIENT [id number] IUI ISMAEL GARCIA 11/11 Released w/o Limitations [facility]Gy n Inferti [facility]ity) [facility]) OUTPATIENT [id number] MED RENEWAL YAMILETH MAGALLON 12/02 Released w/o Limitations [facility]) [facility]iment[facility]ist Infertili ty) TELE CONSULT [id number] Patient started cycle yesterd ay want to know if she can have IUI UGO MULLINS 12/02 [facility] n Inf[facility]i [facility]) [facility]ist Infertili ty) TELE CONSULT [id number] Patient need clomid she is in day 3 of her cycle ISMAEL GARCIA 02/01 [facility] n [facility]) [facility]) OUTPATIENT [id number] MEDICAT ION//AN XIETY YAMILETH MAGALLON 05/10 Released w/o Limitations [facility]) [facility]) OUTPATIENT [id number] MEDICAT ION//F/ U LABS YAMILETH MAGALLON 11/28 Released w/o Limitations [facility]) [facility]) OUTPATIENT [id number] EIC/ below left ear YAMILETH MAGALLON 12/06 Released w/o Limitations [facility] Red) OUTPATIENT [id number] SUTURE REMOVAL NITIN WATSON 12/14 Released w/o Limitations [facility] Red) [facility]) OUTPATIENT [id number] follow- up anxiety YAMILETH MAGALLON 07/06 Released w/o Limitations [facility]) [facility] [address] [place]) OUTPATIENT [id number] PAP/HED IS JOSE GARNETT 07/07 Released w/o Limitations [facility] Abdul[facility]) [facility]) OUTPATIENT [id number] Referra l YAMILETH MAGALLON 09/14 Released w/o Limitations [facility]) [facility]) OUTPATIENT [id number] NEW INFERTI LITISMAEL AKERS 10/18 Released w/o Limitations [facility]) [facility]) OUTPATIENT [id number] repeat pap smear YAMILETH MAGALLON 11/01 Released w/o Limitations [facility]) [facility]) TELE CONSULT [id number] Patient need HCG befoe HSG and CCCT UGO MULLINS 11/08 [facility]) [facility]) OUTPATIENT [id number] SIS CD 7 TODAY ISMAEL GARCIA 11/14 Released w/o Limitations [facility]) [facility]) TELE CONSULT [id number] Patient need lab results UGO MULLINS 11/20 [facility]) [facility]) TELE CONSULT [id number] Paitent need to repeat CCCT UGO MULLINS 11/24 [facility]) [facility]) TELE CONSULT [id number] Patient need ultraso und in day 3 of the cycle she started yesterd ay UGO MULLINS E 01/03 [facility]) [facility]) TELE CONSULT [id number] Patient having questio ns UGO MULLINS 01/10 [facility]) [facility]) OUTPATIENT [id number] medicat ion renewal YAMILETH MAGALLON 01/15 Released w/o Limitations [facility]) [facility])([facility]iment[facility]ist [employer]) TELE CONSULT [id number] Patient need lab results to take to urology UOG MULLINS 01/31 [facility]) [facility]) TELE CONSULT [id number] Patient started cycle thursday need day 3 ultraso und UGO MULLINS 03/05 [facility]) [facility]) OUTPATIENT [id number] consult ation for proc. YMAILETH MAGALLON 03/09 Released w/o Limitations [facility]) [facility])([facility]iment[facility] [employer]) TELE CONSULT [id number] Patient need test results UGO MULLINS 03/16 [facility]) [facility]ediment[facility]ist [facility]) TELE CONSULT [id number] Patient done 3 cycle of clomid will like to do IUI UGO MULLINS 04/05 [facility]) [facility])([facility] Infert[facility] ty[facility] OUTPATIENT [id number] FOLLICL E CHECK ISMAEL GARCIA 04/13 Released w/o Limitations [facility] n [facility]i [facility]) [facility])([facility]ediment[facility]ist [employer]) TELE CONSULT [id number] Instruc tions for IUI UGO MULLINS Guru 04/13 [facility]) [facility])([facility]ist Infert[facility]) OUTPATIENT [id number] IUI ISMAEL GARCIA 04/17 Released w/o Limitations [facility])(Gy n Inferti lity) [facility])([facility]iment[facility]ist [employer]) TELE CONSULT [id number] CD1 today want to do another IUI UGO MULLINS Guru 05/01 [facility]) [facility])([facility]iment[facility]) TELE CONSULT [id number] having questio ns about her cycle UGO MULLINS Guru 05/14 [facility] n [facility]) [facility]) TELE CONSULT [id number] referra l RADHA Knutson 06/19 [facility]) [facility])(Sedimentationist [facility]) TELE CONSULT [id number] Late in the cycle need hCG test UGO MULLINS Guru 08/06 [facility] n [facility]) [facility])(Sedimentationist [facility]) TELE CONSULT [id number] test results UGO MULLINS Guru 08/09 [facility] n [facility]) [facility])([facility] Infertili ty) OUTPATIENT [id number] CONFIRM ATION U/S TATO AVILA 08/17 Released w/o Limitations [facility] n [facility]) [facility])([facility]iment[facility]ist Infertili ty) OUTPATIENT [id number] CONFIRM ATION U/S ISMAEL GARCIA 08/24 Released w/o Limitations [facility])([facility] n [facility]) [facility])([facility]ist Inf[facility]) OUTPATIENT [id number] CONFIRM ATION U/S ISMAEL GARCIA 08/31 Released w/o Limitations [facility] n [facility]) [facility])([facility]ist Inf[facility]) OUTPATIENT [id number] CONFIRM ATION U/S ISMAEL GARCIA 09/07 Released w/o Limitations [facility] n [facility]) [facility] OUTPATIENT [id number] EDC:31O CT 9 WEEKS CLAYTON BRYAN 09/10 Released w/o Limitations [facility])([facility] Infert[facility]) OUTPATIENT [id number] CONFIRM ATION U/S TATO AVILA 09/14 Released w/o Limitations [facility])(Gy n Inf[facility]i [facility]ity) [facility] [id number] New OB physica l BENJAMIN Apr 14, 2010 KEYONA ESPARZA 09/28 Released w/o Limitations [facility]) [facility] OUTPATIENT [id number] 17WK EDC KEYONA ESPARZA 10/29 Released w/o Limitations [facility]) [facility])([facility] etrics [facility]) OUTPATIENT [id number] 20wk edc KEYONA ESPARZA 11/28 Released w/o Limitations [facility]) [facility] OUT[facility]IENT [id number] 23wk edc LD MEADOWS 12/19 Released w/o Limitations [facility])([facility]) [facility]) OUTPATIENT [id number] edc wks KEYONA ESPARZA 01/22 Released w/o Limitations [facility])([facility]) [facility]) TELE CONSULT [id number] lab result KEYONA ESPARZA 01/25 [facility])([facility]) [facility] Wayne dolan [place]([facility]) OUTPATIENT [id number] cyst on neck/no ne CESAR CLAUDE Erich 12/19 Released w/o Limitations [facility] DONAVAN Ambrose(Fami ly Practic e [facility] 57) [facility] Wayne Bailey [place]([facility]) OUTPATIENT [id number] EPIDERM AL INCLUSI ON CYST BRIGGS III, NITIN M. 12/26 Released w/o Limitations [facility] DONAVAN Ambrose(Gene ral Surgery [facility] 57) [facility] Wayne Bailey [place]([facility]) OUTPATIENT [id number] f/u cyst drainag e on 26 December BRIGGS III, NITIN M. 12/30 Released w/o Limitations [facility] DONAVAN Ambrose([facility] 57) [facility] Wayne Bailey [place](Genera l Surgery [facility] 57) OUTPATIENT [id number] f/u BRIGGS III, NITIN M. 01/06 Released w/o Limitations [facility] DONAVAN Ambrose([facility] 57) [facility] Wayne Bailey [place](Genera [facility] Surgery [facility] 57) OUTPATIENT [id number] f/u cyst on neck BRIGGS III, NITIN M. 03/10 Released w/o Limitations [facility] DONAVAN Ambrose(Gene ral Surgery [facility] 57) [facility] Wayne Bailey [place](Genera l Surgery [facility] 57) OUTPATIENT [id number] Excise Cyst on neck NITIN BRIGGS III. 03/26 Released w/o Limitations [place] 57) [place] OUTPATIENT [id number] Suture removal ANDREA GARCIA 04/02 Released w/o Limitations [place] [place] [facility] TELE CONSULT [id number] AMELIA CARVAJAL 04/03 [place] OUTPATIENT [id number] PABLO López 08/17 Released w/o Limitations [place] [place] [facility] [place] [facility] 57) [place]) OUTPATIENT [id number] Notes Entered by: Arpita MCFADDEN 15 Sep 2011 0923 ------- ------- ------- ------- -- HCG MONSE JOHNSON 09/14 Released w/o Limitations [place]) [place] Coleman [place](Ob) TELE CONSULT [id number] 17 weeks pregnan t needs transfe r-in appt STEFFELVISIONA 12/10 [place](Ob) [place] [address] DIRECT TO [facility] FROM OTHER THAN ER OR U [id number] TAYE VIGIL 01/04 RETURNED TO DUT[facility] [place] [address] Procedures Combined list of: 1) Procedures from Department of Veterans Affairs facilities going back up to thelast 18 months, not all VA non-surgical procedures are included; 2) All procedures from the Department of Defense facilities. Procedure Procedure Type Code Date Perfomer Comments Sourc e TELE ASSESS & MGT SRV PROV QUAL NONPHYS HLTH CARE PRO TO EST PAT,PARENT,GUARD NOT ORIG REL ASSESS & MGT SRV PROV W/IN PREV 7 DAYS NOR LEAD ASSESS & MGT SRV/PX W/IN NXT 24 HR/SOON APT;5-10 MIN MED DIS 12/11/19 12 DoD POSTOPERATIVE FOLLOW-UP VISIT, NORMALLY INCLUDED IN THE SURGICAL PACKAGE, INDICATE THAT EVALUATION & MANAGEMENT SERVICE WAS PERFORMED DURING A POSTOPERATIVE PERIOD REASON RELATED ORIGINAL PROCEDURE 01/05/20 09 DoD LAPAROSCOPY, SURGICAL; WITH REMOVAL OF ADNEXAL STRUCTURES (PARTIAL OR TOTAL OOPHORECTOMY AND/OR SALPINGECTOMY) 01/04/20 09 DoD POSTOPERATIVE FOLLOW-UP VISIT, NORMALLY INCLUDED IN THE SURGICAL PACKAGE, INDICATE THAT EVALUATION & MANAGEMENT SERVICE WAS PERFORMED DURING A POSTOPERATIVE PERIOD REASON RELATED ORIGINAL PROCEDURE 04/02/20 11 DoD EXCISION, BENIGN LESION INCLUDING MARGINS, EXCEPT SKIN TAG (UNLESS LISTED ELSEWHERE), SCALP, NECK, HANDS, FEET, GENITALIA; EXCISED DIAMETER 2.1 TO 3.0 CM 03/26/20 11 DoD POSTOPERATIVE FOLLOW-UP VISIT, NORMALLY INCLUDED IN THE SURGICAL PACKAGE, INDICATE THAT EVALUATION & MANAGEMENT SERVICE WAS PERFORMED DURING A POSTOPERATIVE PERIOD REASON RELATED ORIGINAL PROCEDURE 01/07/20 11 DoD POSTOPERATIVE FOLLOW-UP VISIT, NORMALLY INCLUDED IN THE SURGICAL PACKAGE, INDICATE THAT EVALUATION & MANAGEMENT SERVICE WAS PERFORMED DURING A POSTOPERATIVE PERIOD REASON RELATED ORIGINAL PROCEDURE 12/31/19 11 DoD INCISION AND DRAINAGE OF ABSCESS (EG, CARBUNCLE, SUPPURATIVE HIDRADENITIS, CUTANEOUS OR SUBCUTANEOUS ABSCESS, CYST, FURUNCLE, OR PARONYCHIA); SIMPLE OR SINGLE 12/27/19 11 DoD EDUCATIONAL SUPPLIES, SUCH BOOKS, TAPES, AND PAMPHLETS, FOR THE PATIENT'S EDUCATION AT COST TO PHYSICIAN OR OTHER QUALIFIED HEALTH PENOLOGY PROFESSOR 10/24/19 04 DoD SCREENING PAPANICOLAOU SMEAR; OBTAINING, PREPARING AND CONVEYANCE OF CERVICAL OR VAGINAL SMEAR TO LABORATORY 09/27/19 04 DoD WOUND CLEANSERS, ANY TYPE, ANY SIZE 05/17/20 03 DoD SKIN TEST; TUBERCULOSIS, INTRADERMAL 11/29/19 03 DoD SKIN TEST; TUBERCULOSIS, INTRADERMAL 11/26/19 03 DoD WEARABLE ECG RHYTHM DERIVED MONITOR FOR 24 HR,CONT ORIG WAVEFORM RECORD & STORE W/O SUPERIMPOSIT SCNING UTILIZING DEVICE CAPABLE PRODUCING FULL MINI PRINTOUT; INC RECORD,MICROPROC ANAL,PHYS REV & INT 09/16/19 [facility] PHYS/OTH QUALIFIED HEALTH PENOLOGY PROFESSOR QUALIFIED,EDUCATION,TR AIN,LICENSURE/REGULATI ON (WHEN APPLICABLE) EDUC SER RENDERED TO PATS IN A GRP SETTING (EG,,OBESITY,O R DIABETIC INSTRUCT) 01/29/20 [facility] PURE TONE AUDIOMETRY (THRESHOLD); AIR ONLY 12/28/19 [facility] SKIN TEST; TUBERCULOSIS, INTRADERMAL 12/22/19 [facility] SCREENING PAPANICOLAOU SMEAR; OBTAINING, PREPARING AND CONVEYANCE OF CERVICAL OR VAGINAL SMEAR TO LABORATORY 10/09/19 02 [facility] SUBSEQ CARE VISIT () [EXCLS:PATIENTS WHO ARE SEEN FOR A CONDITION UNREL TO / CARE (EG,AN UP RESPIR INFECT;PATIENTS SEEN FOR CONSULTATION ONLY,NOT FOR CONT CARE)] 01/23/20 10 [facility] SUBSEQ CARE VISIT () [EXCLS:PATIENTS WHO ARE SEEN FOR A CONDITION UNREL TO / CARE (EG,AN UP RESPIR INFECT;PATIENTS SEEN FOR CONSULTATION ONLY,NOT FOR CONT CARE)] 12/20/19 10 [facility] [facility] SUBSEQ CARE VISIT () [EXCLS:PATIENTS WHO ARE SEEN FOR A CONDITION UNREL TO / CARE (EG,AN UP RESPIR INFECT;PATIENTS SEEN FOR CONSULTATION ONLY,NOT FOR CONT CARE)] 11/29/19 10 [facility] SUBSEQ CARE VISIT () [EXCLS:PATIENTS WHO ARE SEEN FOR A CONDITION UNREL TO / CARE (EG,AN UP RESPIR INFECT;PATIENTS SEEN FOR CONSULTATION ONLY,NOT FOR CONT CARE)] 10/30/19 10 [facility] SCREENING PAPANICOLAOU SMEAR; OBTAINING, PREPARING AND CONVEYANCE OF CERVICAL OR VAGINAL SMEAR TO LABORATORY 09/29/19 10 [facility] ULTRASOUND, TRANSVAGINAL 09/08/19 10 [facility] ULTRASOUND, UTERUS, REAL TIME WITH IMAGE DOCUMENTATION, LIMITED (EG, HEART BEAT, PLACENTAL LOCATION, POSITION AND/OR QUALITATIVE AMNIOTIC FLUID VOLUME), 1 OR MORE FETUSES 09/01/19 10 [facility] ULTRASOUND, TRANSVAGINAL 08/25/19 10 [facility] ULTRASOUND, UTERUS, REAL TIME WITH IMAGE DOCUMENTATION,TRANSVAG INAL 08/18/19 10 [facility] TELE ASSESS & MGT SRV PROV QUAL NONPHYS HLTH CARE PRO TO EST PAT,PARENT,GUARD NOT ORIG REL ASSESS & MGT SRV PROV W/IN PREV 7 DAYS NOR LEAD ASSESS & MGT SRV/PX W/IN NXT 24 HR/SOON APT;5-10 MIN MED DIS 08/09/19 10 DoD TELE ASSESS & MGT SRV PROV QUAL NONPHYS HLTH CARE PRO TO EST PAT,PARENT,GUARD NOT ORIG REL ASSESS & MGT SRV PROV W/IN PREV 7 DAYS NOR LEAD ASSESS & MGT SRV/PX W/IN NXT 24 HR/SOON APT;5-10 MIN MED DIS 08/06/19 10 DoD TELE ASSESS & MGT SRV PROV QUAL NONPHYS HLTH CARE PRO TO EST PAT,PARENT,GUARD NOT ORIG REL ASSESS & MGT SRV PROV W/IN PREV 7 DAYS NOR LEAD ASSESS & MGT SRV/PX W/IN NXT 24 HR/SOON APT;5-10 MIN MED DIS 05/13/20 09 DoD TELE ASSESS & MGT SRV PROV QUAL NONPHYS HLTH CARE PRO TO EST PAT,PARENT,GUARD NOT ORIG REL ASSESS & MGT SRV PROV W/IN PREV 7 DAYS NOR LEAD ASSESS & MGT SRV/PX W/IN NXT 24 HR/SOON APT;5-10 MIN MED DIS 05/01/20 09 DoD ARTIFICIAL INSEMINATION; INTRA-UTERINE 04/17/20 09 DoD TELE ASSESS & MGT SRV PROV QUAL NONPHYS HLTH CARE PRO TO EST PAT,PARENT,GUARD NOT ORIG REL ASSESS & MGT SRV PROV W/IN PREV 7 DAYS NOR LEAD ASSESS & MGT SRV/PX W/IN NXT 24 HR/SOON APT;5-10 MIN MED DIS 04/13/20 09 DoD COLLECTION OF VENOUS BLOOD BY VENIPUNCTURE 04/13/20 09 DoD TELE ASSESS & MGT SRV PROV QUAL NONPHYS HLTH CARE PRO TO EST PAT,PARENT,GUARD NOT ORIG REL ASSESS & MGT SRV PROV W/IN PREV 7 DAYS NOR LEAD ASSESS & MGT SRV/PX W/IN NXT 24 HR/SOON APT;5-10 MIN MED DIS 04/05/20 09 DoD TELE ASSESS & MGT SRV PROV QUAL NONPHYS HLTH CARE PRO TO EST PAT,PARENT,GUARD NOT ORIG REL ASSESS & MGT SRV PROV W/IN PREV 7 DAYS NOR LEAD ASSESS & MGT SRV/PX W/IN NXT 24 HR/SOON APT;5-10 MIN MED DIS 03/16/20 09 DoD TELE ASSESS & MGT SRV PROV QUAL NONPHYS HLTH CARE PRO TO EST PAT,PARENT,GUARD NOT ORIG REL ASSESS & MGT SRV PROV W/IN PREV 7 DAYS NOR LEAD ASSESS & MGT SRV/PX W/IN NXT 24 HR/SOON APT;5-10 MIN MED DIS 03/05/20 09 DoD TELE ASSESS & MGT SRV PROV QUAL NONPHYS HLTH CARE PRO TO EST PAT,PARENT,GUARD NOT ORIG REL ASSESS & MGT SRV PROV W/IN PREV 7 DAYS NOR LEAD ASSESS & MGT SRV/PX W/IN NXT 24 HR/SOON APT;5-10 MIN MED DIS 02/01/20 09 DoD TELE ASSESS & MGT SRV PROV QUAL NONPHYS HLTH CARE PRO TO EST PAT,PARENT,GUARD NOT ORIG REL ASSESS & MGT SRV PROV W/IN PREV 7 DAYS NOR LEAD ASSESS & MGT SRV/PX W/IN NXT 24 HR/SOON APT;5-10 MIN MED DIS 01/11/20 09 DoD TELE ASSESS & MGT SRV PROV QUAL NONPHYS HLTH CARE PRO TO EST PAT,PARENT,GUARD NOT ORIG REL ASSESS & MGT SRV PROV W/IN PREV 7 DAYS NOR LEAD ASSESS & MGT SRV/PX W/IN NXT 24 HR/SOON APT;5-10 MIN MED DIS 01/04/20 09 DoD TELE ASSESS & MGT SRV PROV QUAL NONPHYS HLTH CARE PRO TO EST PAT,PARENT,GUARD NOT ORIG REL ASSESS & MGT SRV PROV W/IN PREV 7 DAYS NOR LEAD ASSESS & MGT SRV/PX W/IN NXT 24 HR/SOON APT;5-10 MIN MED DIS 11/25/19 09 DoD TELE ASSESS & MGT SRV PROV QUAL NONPHYS HLTH CARE PRO TO EST PAT,PARENT,GUARD NOT ORIG REL ASSESS & MGT SRV PROV W/IN PREV 7 DAYS NOR LEAD ASSESS & MGT SRV/PX W/IN NXT 24 HR/SOON APT;5-10 MIN MED DIS 11/21/19 09 DoD ULTRASOUND, PELVIC (NONOBSTETRIC), REAL TIME WITH IMAGE DOCUMENTATION; COMPLETE 11/15/19 DoD TELE ASSESS & MGT SRV PROV QUAL NONPHYS HLTH CARE PRO TO EST PAT,PARENT,GUARD NOT ORIG REL ASSESS & MGT SRV PROV W/IN PREV 7 DAYS NOR LEAD ASSESS & MGT SRV/PX W/IN NXT 24 HR/SOON APT;5-10 MIN MED DIS 11/09/19 09 [facility] SCREENING PAPANICOLAOU SMEAR; OBTAINING, PREPARING AND CONVEYANCE OF CERVICAL OR VAGINAL SMEAR TO LABORATORY 11/02/19 09 [facility] PHYS/OTH QUALIFIED HEALTH PENOLOGY PROFESSOR QUALIFIED,EDUCATION,TR AIN,LICENSURE/REGULATI ON (WHEN APPLICABLE) EDUC SER RENDERED TO PATS IN A GRP SETTING (EG,,OBESITY,O R DIABETIC INSTRUCT) 10/19/19 09 [facility] SCREENING PAPANICOLAOU SMEAR; OBTAINING, PREPARING AND CONVEYANCE OF CERVICAL OR VAGINAL SMEAR TO LABORATORY 07/07/19 09 [facility] BIOPSY OF SKIN, SUBCUTANEOUS TISSUE AND/OR MUCOUS MEMBRANE (INCLUDING SIMPLE CLOSURE), UNLESS OTHERWISE LISTED; SINGLE LESION 12/07/19 08 [facility] ARTIFICIAL INSEMINATION; INTRA-UTERINE 11/12/19 07 [facility] ULTRASOUND, TRANSVAGINAL 11/06/19 07 [facility] ARTIFICIAL INSEMINATION; INTRA-UTERINE 09/05/19 07 [facility] ULTRASOUND, PELVIC (NONOBSTETRIC), REAL TIME WITH IMAGE DOCUMENTATION; LIMITED OR FOLLOW-UP (EG, FOR FOLLICLES) 09/03/19 07 [facility] UNLISTED THERAPEUTIC, PROPHYLACTIC OR DIAGNOSTIC INTRAVENOUS OR INTRA-ARTERIAL INJECTION OR INFUSION 08/07/19 07 [facility] ULTRASOUND, TRANSVAGINAL 08/07/19 07 [facility] UNLISTED PSYCHIATRIC SERVICE OR PROCEDURE 02/18/20 06 [facility] INTRODUCTION OF NEEDLE OR INTRACATHETER, VEIN 01/29/20 06 [facility] SCREENING PAPANICOLAOU SMEAR; OBTAINING, PREPARING AND CONVEYANCE OF CERVICAL OR VAGINAL SMEAR TO LABORATORY 09/17/19 06 [facility]D SPECIAL REPORTS SUCH INSURANCE FORMS, MORE THAN THE INFORMATION CONVEYED IN THE USUAL MEDICAL COMMUNICATIONS OR STANDARD REPORTING FORM 11/13/19 DoD SPECIAL REPORTS SUCH INSURANCE FORMS, MORE THAN THE INFORMATION CONVEYED IN THE USUAL MEDICAL COMMUNICATIONS OR STANDARD REPORTING FORM 11/12/19 [facility] SKIN TEST; TUBERCULOSIS, INTRADERMAL 11/11/19 [facility] EDUCATIONAL SUPPLIES, SUCH BOOKS, TAPES, AND PAMPHLETS, FOR THE PATIENT'S EDUCATION AT COST TO PHYSICIAN OR OTHER QUALIFIED HEALTH PENOLOGY PROFESSOR 10/27/19 [facility] SPECIAL REPORTS SUCH INSURANCE FORMS, MORE THAN THE INFORMATION CONVEYED IN THE USUAL MEDICAL COMMUNICATIONS OR STANDARD REPORTING FORM 09/29/19 [facility] Non-Physician Phone Call To Patient/Provider Brief (5-10min) Non-Physician Phone Call To Patient/Provider Brief (5-10min) [id number] 12/11/19 12 IONA PACHECO A Kennedy Excision Of Lesion Neck Benign 2.1 to 3cm Excision Of Lesion Neck Benign 2.1 to 3cm [id number] 03/26/20 11 NITIN BRIGGS III Incision And Drainage Of Skin Absce Incision And Drainage Of Skin Abscess 52956 12/27/19 11 NITIN BRIGGS III OB Services Antepartum Care Only Subsequent Single Visit OB Services Antepartum Care Only Subsequent Single Visit 0502F 01/23/20 10 KEYONA ESPARZA OB Services Antepartum Care Only Subsequent Single Visit OB Services Antepartum Care Only Subsequent Single Visit 0502F 12/20/19 10 LD MEADOWS OB Services Antepartum Care Only Subsequent Single Visit OB Services Antepartum Care Only Subsequent Single Visit 0502F 11/29/19 10 KEYONA ESPARZA OB Services Antepartum Care Only Subsequent Single Visit OB Services Antepartum Care Only Subsequent Single Visit 0502F 10/30/19 10 KEYONA ESPARZA Screening papanicolaou smear; obtaining, preparing and conveyance of cervical or vaginal smear to laboratory 09/29/19 10 KEYONA ESPARZA OB Services Antepartum Care Only First Visit, With Report OB Services Antepartum Care Only First Visit, With Report 0500F 09/29/19 10 KEYONA ESPARZA Trans-Vaginal Ultrasound Trans-Vaginal Ultrasound 88015 09/08/19 10 ISMAEL GARCIA Ultrasound Obstetric Limited Evaluation Ultrasound Obstetric Limited Evaluation [id number] 09/01/19 10 ISMAEL GARCIA OB Services Antepartum Care Only First Visit, With Report OB Services Antepartum Care Only First Visit, With Report 0500F 09/01/19 10 ISMAEL GARCIA Ultrasound [place] [id number] 09/01/19 10 ISMAEL GARCIA Trans-Vaginal Ultrasound Trans-Vaginal Ultrasound 40579 08/26/19 10 ISMAEL GARCIA Ultrasound [place] [address] 08/18/19 10 TATO MANNING Non-Physician Phone Call To Patient/Provider Brief (5-10min) Non-Physician Phone Call To Patient/Provider Brief (5-10min) [id number] 08/09/19 10 UGO MULLINS Non-Physician Phone Call To Patient/Provider Brief (5-10min) Non-Physician Phone Call To Patient/Provider Brief (5-10min) [id number] 08/06/19 10 UGO MULLINS Non-Physician Phone Call To Patient/Provider Brief (5-10min) Non-Physician Phone Call To Patient/Provider Brief (5-10min) [id number] 05/14/20 09 UGO MULLINS Non-Physician Phone Call To Patient/Provider Brief (5-10min) Non-Physician Phone Call To Patient/Provider Brief (5-10min) [id number] 05/01/20 09 UGO MULLINS Artificial Insemination Intrauterine Artificial Insemination Intrauterine 22623 04/17/20 09 ISMAEL GARCIA Non-Physician Phone Call To Patient/Provider Brief (5-10min) Non-Physician Phone Call To Patient/Provider Brief (5-10min) [id number] 04/13/20 09 UGO MULLINS Trans-Vaginal Ultrasound Trans-Vaginal Ultrasound 25362 04/13/20 09 ISMAEL GARCIA Venipuncture Venipuncture 12429 04/13/[address]Supervised Specimen Handling / Transfer: Office To Lab -Supervised Specimen Handling / Transfer: Office To Lab [id number] 04/13/20 09 ISMAEL GARCIA Non-Physician Phone Call To Patient/Provider Brief (5-10min) Non-Physician Phone Call To Patient/Provider Brief (5-10min) [id number] 04/05/20 09 UGO MULLINS Non-Physician Phone Call To Patient/Provider Brief (5-10min) Non-Physician Phone Call To Patient/Provider Brief (5-10min) [id number] 03/16/20 09 UGO MULLINS Non-Physician Phone Call To Patient/Provider Brief (5-10min) Non-Physician Phone Call To Patient/Provider Brief (5-10min) [id number] 03/05/20 09 UGO MULLINS Non-Physician Phone Call To Patient/Provider Brief (5-10min) Non-Physician Phone Call To Patient/Provider Brief (5-10min) [id number] 02/01/20 09 UGO MULLINS Non-Physician Phone Call To Patient/Provider Brief (5-10min) Non-Physician Phone Call To Patient/Provider Brief (5-10min) [id number] 01/11/20 09 UGO MULLINS Non-Physician Phone Call To Patient/Provider Brief (5-10min) Non-Physician Phone Call To Patient/Provider Brief (5-10min) [id number] 01/04/20 09 UGO MULLINS Non-Physician Phone Call To Patient/Provider Brief (5-10min) Non-Physician Phone Call To Patient/Provider Brief (5-10min) [id number] 11/25/19 09 UGO MULLINS Non-Physician Phone Call To Patient/Provider Brief (5-10min) Non-Physician Phone Call To Patient/Provider Brief (5-10min) [id number] 11/21/19 09 UGO MULLINS Pelvic Ultrasound 11/15/19 09 ISMAEL GARCIA Ultrasonic Guidance Procedures Ultrasonic Guidance Procedures [id number] 11/15/19 09 ISMAEL GARCIA Saline Infusion Sonohysterography With Saline Injection Saline Infusion Sonohysterography With Saline Injection [id number] 11/15/19 09 ISMAEL GARCIA 3-D Rendering Requiring Image Postproce ing 11/15/19 09 ISMAEL GARCIA Dilation Of Cervical Canal Dilation Of Cervical Canal 12224 11/15/19 09 ISMAEL GARCIA Trans-Vaginal Ultrasound Trans-Vaginal Ultrasound 63750 11/15/19 09 ISMAEL GARCIA Non-Physician Phone Call To Patient/Provider Brief (5-10min) Non-Physician Phone Call To Patient/Provider Brief (5-10min) [id number] 11/09/19 09 UGO MULLINS Screening papanicolaou smear; obtaining, preparing and conveyance of cervical or vaginal smear to laboratory 11/02/19 09 YAMILETH MAGALLON Screening papanicolaou smear; obtaining, preparing and conveyance of cervical or vaginal smear to laboratory 07/07/19 09 JOSE GARNETT Biopsy Skin Biopsy Skin 32697 12/07/19 08 YAMILETH MAGALLON Replace, soft interface material, static AFO 11/12/19 07 ISMAEL GARCIA Artificial Insemination Intrauterine Artificial Insemination Intrauterine 62532 11/12/19 07 ISMAEL GARCIA Pelvic Ultrasound Follow-Up Study 11/12/19 07 ISMAEL GARCIA [facility] Trans-Vaginal Ultrasound Trans-Vaginal Ultrasound 01581 11/06/19 07 ISMAEL GARCIA [facility] Pelvic Ultrasound Follow-Up Study 11/06/19 07 ISMAEL GARCIA Artificial Insemination Intrauterine Artificial Insemination Intrauterine 32323 09/06/19 07 ISMAEL GARCIA [facility] Replace, soft interface material, static AFO 09/06/19 07 ISMAEL GARCIA Pelvic Ultrasound Follow-Up Study 09/03/19 07 ISMAEL GARCIA Trans-Vaginal Ultrasound Trans-Vaginal Ultrasound 33666 09/03/19 07 ISMAEL GARCIA Trans-Vaginal Ultrasound Trans-Vaginal Ultrasound 36887 08/07/19 07 ISMAEL GARCIA [facility] Pelvic Ultrasound Follow-Up Study 08/07/19 07 ISMAEL GARCIA [facility] Supervised Injection Supervised Injection [id number] 08/07/19 07 UGO MULLINS [facility] Behavior Therapy Relaxation Training Behavior Therapy Relaxation Training 35526 02/18/20 06 PIO ENCARNACION [facility] Screening papanicolaou smear; obtaining, preparing and conveyance of cervical or vaginal smear to laboratory 09/17/19 06 CAILIN PITTMAN [facility] Social History Combined list of available smoking, tobacco, and other social history from Department of Defense and Veterans Affairs facilities. Social History Type Response Date Comment Sour e This section is an empty social history section. DoD
--- OUTSIDE RECORDS SUMMARY | 2024-10-06 11:08 | XMS_ITS | Clinical Summary ---
Author Organization [facility] Address [address] [place] [address] Care Team Providers Care Perfect Binder Operator Name Role Phone Mariola Munroe MD Primary Care Provider Source Comments [facility] [employer]non-owned Affiliates and Associated Physician Practices is amultiple site organization consisting of ambulatory clinics and hospital sitesin [place], [place], [place] and [place]. This disclosure is being madepursuant to the Care Everywhere program and may not contain all information available regarding this patient. Last updated 18.[facility] [employer] Allergies No known active allergies Medications * Be aware that medications may not be up to date on this document. Alwaysverify current medications with the patient. Citalopram Hydrobromide (CELEXA PO) Active Levonorgest-Eth Estrad 91-Day (SEASONIQUE PO) Acti ve atorvastatin (Lipitor) 10 MG tablet 3 Active traMADol (Ultram) 50 MG tablet Take 1 (one) tablet by mouth every 6 hours as needed for Pain 12 tablet 4 Active Additional Information Patient not taking.Reported on [...] more drinks on one occasion? 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 [address] [place] [id number] Health Maintenance Due Date Last Done Comments [...] - 19+ 3-dose series) 1997 COVID-19 VACCINE (1 - 2023-2 5 season) 2024 DEPRESSION SCREENING 06/15/2024 INFLUENZA VACCINE (Season Ended) 2025 SCREENING FOR DIABETES 12/20/2026 12/21/2023 ZOSTER VACCINE [...] 7 - 26 mg/dL 12/21/2023 5:20 PM [facility] Creatinine 0.71 0.56 - 0.96 mg/dL 12/21/2023 5:20 PM [facility] Sodium 141 136 - 145 mmol/L 12/21/2023 5:20 PM [facility] Potassium 4.0 3.5 - 4.5 mmol/L 12/21/2023 5:20 PM [facility] Chloride 107 98 - 107 mmol/L 12/21/2023 5:20 PM [facility] CO2 24 22 - 29 mmol/L 12/21/2023 5:20 PM [facility] Glucose 74 70 - 115 mg/dL 12/21/2023 5:20 PM [facility] Calcium 9.8 8.4 - 10.2 mg/dL 12/21/2023 5:20 PM [facility] Protein Total 7.8 6.0 - 8.3 g/dL 12/21/2023 5:20 PM [facility] Albumin 4.6 3.4 - 5.0 g/dL 12/21/2023 5:20 PM [facility] Bilirubin Total 0.7 0.2 - 1.2 mg/dL 12/21/2023 5:20 PM [facility] Alkaline Phosphatase 88 40 - 150 U/L 12/21/2023 5:20 PM [facility] ALT 58(H) 5 - 55 U/L 12/21/2023 5:20 PM [facility] AST 23 5 - 34 U/L 12/21/2023 5:20 PM [facility] Anion Gap 10 6 - 16 12/21/2023 5:20 PM [facility] BUN/Creatinine Ratio 17 7 - 23 12/21/2023 5:20 PM [facility] Osmolality Calculated 290 275 - 295 mOsm/kg 12/21/2023 5:20 PM [facility] Albumin/Globulin Ratio 1.4 1.1 - 2.3 12/21/2023 5:20 PM [facility] eGFR by CKD-EPI >90 >=90 mL/min/1.7 3 m2 12/21/2023 5:20 PM [facility] Blood BLOOD SPECIMEN / Unknown Lab Venipuncture / Unknown 12/21/2023 3:17 PM CDT 12/21/2023 4:43 PM T Rodrigue Prakash MD LAB - CHEMISTRY ORDERABLES Final Result [facility] [address] [place] [address], [facility] [phone] from Last 3 Months or Most Recently Relevant to Health Maintenance Insurance Care Teams Perfect Binder Operator Relationship Specialty Start Date End Date Mariola Munroe MD [address] [place] [id number] PCP - General Family Medicine 12/04/23
--- OUTSIDE RECORDS SUMMARY | 2024-10-06 11:08 | XMS_ITS | Encounter Summary ---
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 Answer Date of Assessment Author No 12/24/2023 10:24 AM CDT Middleton RN * Is person blind or have serious difficulty seeing? Answer Date of Assessment Author No 12/24/2023 10:24 AM CDT Middleton RN * Does person have serious difficulty walking/climbing stairs? Answer Date of Assessment Author No 12/24/2023 10:24 AM THADDEUST Middleton RN * Does person have difficulty dressing/bathing? Answer Date of Assessment Author No 12/24/2023 10:24 AM THADDEUST Middleton RN documented as of this encounter Mental Status * Does person have difficulty concentrating/remembering/making decisions? Answer Entry Date Author No 12/24/2023 10:24 AM THADDEUST Middleton RN documented in this encounter Plan of Treatment Upcoming Encounters Date Type Department Care Team (Late st Contact Info) Description 01/09/2025 1:15 PM CDT Office Visit [facility] Physician [facility] - General Surgery [address] [place] [phone] Rodrigue Prakash MD [address] [facility] [address] [place], [place] [phone] documented as of this encounter Procedures Procedure Name Priority Date/Time Associated Diagnosis Comments DERMATOPATHOLOGY Routine 02/26/2024 12:0 0 AM CDT Neoplasm of uncertain behavior of skin documented in this encounter Results * DERMATOPATHOLOGY (02/26/2024 12:00 AM CDT) Case Report Dermatopathology Report Case: [id number] Authorizing Provider: Nasim Hernández MD Collected: 02/26/2024 12:00 AM Ordering Location: [facility] - Received: 02/29/2024 12:11 PM DermPath Lab [...] shave biopsy measuring 10x9x1 mm. Jar 0. 2:50 PM CDT DERMATOPATHOLOGY LABORATORY Microscopic Description [...] characteristic determined by the Dermatopathology Laboratory at [facility], directed by Dr. Chetan Lopez. These tests need not be, and therefore are not, approved by the [place] Food and Drug Administration. The tests are used for clinical purposes. Billing Codes Specimen Charges Stain Charges 63871 1 4 2:50 PM CDT DERMATOPATHOLOGY LABORATORY Embedded Images 2:50 PM CDT DERMATOPATHOLOGY LABORATORY Pathology/Cytolog y TISSUE SPECIMEN FROM SKIN / Unknown 02/26/2024 02/29/2024 12:11 PM CDT us Nasim Hernández MD LAB - PATHOLOGY/CYTOLOGY GUSTAVO MARTINEZ Final Result DERMATOPATHOLOGY LABORATORY [facility] - Department of Dermatology [facility] [address] [place] [address], [address] [place] [address], [facility] [phone] documented in this encounter Visit Diagnoses Diagnosis Neoplasm of uncertain behavior of skin documented in this encounter Care Teams Electrical Mechanical Technician Relationship Specialty Start Date End Date Mariola Munroe MD [address] [address] [place] [address] PCP - General Family Medicine 12/04/23 documented as of this encounter
--- OUTSIDE RECORDS SUMMARY | 2024-10-06 11:09 | XMS_ITS | Patient Health Record ---
Author Organization [facility] Address [address] [place], [place] [id number] Care Team Providers Care Machine Rough Rounder Name Role Phone Mariola Munroe Unavailable Unavaila MITA Rodriguez Unavailable [phone] Allergies No Known Allergies Reason For Referral Reason [facility] (Establishe d Patient) 06/29/2024 THE REFERRAL IS UNDER [facility]. KLL Diagnosis 1 Paresthesia of skin (R20.2) Referred Provider Specialty Podiatry Referral Priority Routine Medications Medication SIG (Take, Route, Frequency, Duration) [...] Answer Notes Tobacco use: Nonsmoker Vital Signs Height-cm 162.56 cm 06/09/2024 Weight-kg 68.04 kg 06/09/2024 Height 64 in 06/09/2024 Weight 150 lbs 06/09/2024 BMI 25.74 kg/m2 06/09/2024 Encounters Encounter Location Date Provider Diagnosis [facility] [address] [place], [place] [id number] 06/09/2024 MITA WALL Hallux limitus of right foot M20.5X1 ; [...] foot (ICD-10 - M79.671) Plan Of Treatment No Information Insurance Providers Payer Name Payer Address Payer Phone Subscriber Number Group Number Insured Name Patient Relationship to Insured Coverage Start Date Coverage End Date [facility] [address] [place] [phone] [id number] PERLA MONTES DE OCA Spouse - patient is the spouse of the insured Medical (General) History Medical History History ICD Code kidney stones Surgical History Surgery Date(Month/Year) kidney stone removed
== END 2024-10-06 09:58 | disposition home or self-care (01) ==
PROVIDERS: PCP Family Medicine; Visit Provider Nurse Practitioner Family
DX: Z12.31 Encounter for screening mammogram for malignant neoplasm of breast (principal)
CPT/HCPCS: 77063; 77067

== ENCOUNTER 2025-01-13 09:53 | Outpatient (CLI) | payer OTHER, SELFPAY ==
--- NOTE | ~2025-01-13 | XR_ITS ---
CHEST RADIOGRAPH, PA AND LATERAL CLINICAL HISTORY: MALIGNANT MELANOMA LEFT KNEE . COMPARISON: None available TECHNIQUE: PA and lateral views of the chest. FINDINGS The cardiomediastinal silhouette is unremarkable. The lungs are clear. IMPRESSION: No focal infiltrate or effusion. Reviewed, dictated and finalized at location A.
--- OUTSIDE RECORDS SUMMARY | 2025-01-13 09:59 | XMS_ITS | Continuity of Care Document ---
Author Name [facility] Organization [facility] Care Team Providers Care Swimming Pool Installer Name Role Phone [facility] Unavailable Unavailable Problems Combined list of problems [...] SMEAR Inactive Condition pap smear ordered in [facility] visit for: screening exam malignant neoplasm breast Inactive Condition taught and recommended monthly self breast exams [facility] Inquiry And Counseling: Family Planning Inactive Condition [facility] visit for: screening exam for malignant neoplasm cervix Inactive Condition pap smear ordered in [facility] Allergies, Adverse Reactions, Alerts Combined list of allergies from Department of Defense and Veterans Affairs facilities. It does not include entries that were removed or entered in error. Substance Category Reaction Severity Reaction type Status Date Reported Comments Source No Known Allergies Drug allergy (disorder) active 12/15/2007 Claudette MACIEL Immunizations Combined list of available immunizations from the Department of Defense and Veterans Affairs facilities. Immunization Series Date Given Administered By Site Reaction Lot Number CVX Code Drug Cytology Technologist Status Comments Source COVID-19, mRNA, LNP-S, PF, 100 mcg or 50 mcg dose 2020 COLLINS, [employer] (MOD) Not Given COVID-19, mRNA, LNP-S, [...] Date DC Date Status Disposition Source JANELL Romero([employer] [employer]) OUTPATIENT [id number] annual pap CAILIN PITTMAN 09/16 Released w/o Limitations [facility] JANELL Galeana([employer]) [facility]) OUTPATIENT [id number] ADULT FEMALE PE//ANX IETY YAMILETH MAGALLON 02/12 Released w/o Limitations [facility]) [facility]) TELE CONSULT [id number] lab results YAMILETH MAGALLON 02/24 [facility]) [facility] [place]) OUTPATIENT [id number] F/U//LA BS RESULTS YAMILETH MAGALLON 03/24 Released w/o Limitations [facility])([facility]) [facility] [place]) OUTPATIENT [id number] Female inferti litISMAEL Ring 05/06 Released w/o Limitations [facility] [facility]) [facility]) TELE CONSULT [id number] Patient need Clomid refill she is in the 1st day of her period. UGO MULLINS 07/28 [facility]) [facility] [facility]) OUTPATIENT [id number] DAY 10 U/S ISMAEL GARCIA 08/07 Released w/o Limitations [facility] [facility]) [facility] [facility]) OUTPATIENT [id number] Patient need teachin g for self injecti on UGO MULLINS 08/07 Released w/o Limitations [facility] [facility]) [facility] [facility]) TELE CONSULT [id number] Patient started period yesterd ay need clomid refill UGO MULLINS 08/24 [facility] [facility]) [facility] [place]) OUTPATIENT [id number] DAY 10 U/S ISMAEL GARCIA 09/02 Released w/o Limitations [facility] [facility]) [facility] [facility]) TELE CONSULT [id number] Patient need sterile l cup for IUI. UGO MULLINS 09/03 [facility]) [facility] [facility]) OUTPATIENT [id number] IUI ISMAEL GARCIA 09/04 Released w/o Limitations [facility] [facility])([facility]) [facility] [facility]) TELE CONSULT [id number] Patient need clomid refill to start today UGO MULLINS 09/21 [facility] [facility]) [facility] [facility]) TELE CONSULT [id number] Patient need hcg results UGO MULLINS 09/28 [facility] [facility]) [facility] [facility]) TELE CONSULT [id number] Patient started her cycle need medicat ion UGO MULLINS 10/27 [facility] [facility]) [facility] [facility]) OUTPATIENT [id number] DAY 10 U/S ISMAEL GARCIA 11/05 Released w/o Limitations [facility] [facility]) [facility] [facility]) OUTPATIENT [id number] IUI ISMAEL GARCIA 11/11 Released w/o Limitations [facility] [facility]) [facility]) OUTPATIENT [id number] MED RENEWAL YAMILETH MAGALLON 12/02 Released w/o Limitations [facility] [facility])([facility] 2[facility]) [facility] [facility]) TELE CONSULT [id number] Patient started cycle yesterd ay want to know if she can have IUI UGO MULLINS 12/02 [facility] [facility]) [facility] [facility]) TELE CONSULT [id number] Patient need clomid she is in day 3 of her cycle ISMAEL GARCIA 02/01 [facility]) [facility])([address]) OUTPATIENT [id number] MEDICAT ION//AN XIETY YAMILETH MAGALLON 05/10 Released w/o Limitations [facility] [facility])([facility] 2[facility]) [facility] [facility])([address]) OUTPATIENT [id number] MEDICAT ION//F/ U LABS YAMILETH MAGALLON 11/28 Released w/o Limitations [facility] [facility])([facility] 2[facility]) [facility]) OUTPATIENT [id number] EIC/ below left ear YAMILETH MAGALLON 12/06 Released w/o Limitations [facility] [facility] Red) OUTPATIENT [id number] SUTURE REMOVAL NITIN WATSON 12/14 Released w/o Limitations [facility] [facility])([facility] H 2A [facility] Red) [facility] [facility]) OUTPATIENT [id number] follow- up anxiety YAMILETH MAGALLON 07/06 Released w/o Limitations [facility] [facility])([facility] 2[facility]) [facility] [facility])([address] [place]) OUTPATIENT [id number] PAP/HED IS JOSE GARNETT 07/07 Released w/o Limitations [facility] [facility])([facility] H M02C [facility]) [facility] [facility]) OUTPATIENT [id number] Referra l YAMILETH MAGALLON 09/14 Released w/o Limitations [facility] [facility])([facility]) [facility]) OUTPATIENT [id number] NEW INFERTI LITISMAEL RING 10/18 Released w/o Limitations [facility] [facility])([facility]) [facility] [facility]) OUTPATIENT [id number] repeat pap smear YAMILETH MAGALLON 11/01 Released w/o Limitations [facility] [facility]) [facility] [facility] [employer]) TELE CONSULT [id number] Patient need HCG befoe HSG and CCCT UGO MULLINS 11/08 [facility] [facility]) [facility] [facility]) OUTPATIENT [id number] SIS CD 7 TODAY ISMAEL GARCIA 11/14 Released w/o Limitations [facility] [facility])([facility]) [facility] [facility]) TELE CONSULT [id number] Patient need lab results UGO MULLINS 11/20 [facility] [facility] n [facility]) [facility] [facility]) TELE CONSULT [id number] Paitent need to repeat CCCT UGO MULLINS 11/24 [facility]) [facility]) TELE CONSULT [id number] Patient need ultraso und in day 3 of the cycle she started yesterd ay UGO MULLINS 01/03 [facility] [facility]) [facility] [facility]) TELE CONSULT [id number] Patient having questio ns UGO MULLINS E 01/10 [facility]) [facility]) OUTPATIENT [id number] medicat ion renewal YAMILETH MAGALLON 01/15 Released w/o Limitations [facility] [facility])([facility] H 2[facility]) [facility] [facility] [employer]) TELE CONSULT [id number] Patient need lab results to take to urology UGO MULLINS 01/31 [facility] [facility]) [facility] [facility]) TELE CONSULT [id number] Patient started cycle thursday need day 3 ultraso und UGO MULLINS 03/05 [facility] [facility])([facility] n [facility]) [facility] [facility])([facility]) OUTPATIENT [id number] consult ation for proc. YAMILETH MAGALLON 03/09 Released w/o Limitations [facility] [facility])([facility] H 2[facility]) [facility] [facility])([facility] [employer]) TELE CONSULT [id number] Patient need test results UGO MULLINS 03/16 [facility] [facility]) [facility] [facility])([facility] [employer]) TELE CONSULT [id number] Patient done 3 cycle of clomid will like to do IUI UGO MULLINS 04/05 [facility] [facility])([facility] n [facility]) [facility] [facility]) OUTPATIENT [id number] FOLLICL E CHECK ISMAEL GARCIA 04/13 Released w/o Limitations [employer])([facility]) [facility])([facility] [employer]) TELE CONSULT [id number] Instruc tions for IUI UGO MULLINS 04/13 [facility] [facility])([facility]) [facility] [facility])([facility]) OUTPATIENT [id number] IUI ISMAEL GARCIA 04/17 Released w/o Limitations [employer] [facility])([facility]) [facility] [facility])([facility] [employer]) TELE CONSULT [id number] CD1 today want to do another IUI UGO MULLINS 05/01 [facility] [facility])([facility] n [facility]) [facility] [facility]) TELE CONSULT [id number] having questio ns about her cycle UGO MULLINS 05/14 [facility] [facility])([facility] n [facility]) [facility] [facility])([facility] M[facility]) TELE CONSULT [id number] referra RADHA Cheng 06/19 [facility] [facility])([facility] M[facility]) [facility] [employer]) TELE CONSULT [id number] Late in the cycle need hCG test UGO MULLINS 08/06 [facility] [facility]) [facility] [facility])([facility] [employer]) TELE CONSULT [id number] test results UGO MULLINS 08/09 [facility] [facility])([facility] n [facility]) [facility] [facility])([facility]) OUTPATIENT [id number] CONFIRM ATION U/S TATO AVILA 08/17 Released w/o Limitations [employer] [facility])([facility]) [facility] [facility])([facility]) OUTPATIENT [id number] CONFIRM ATION U/S ISMAEL GARCIA 08/24 Released w/o Limitations [facility] [facility])([facility]) [facility] [facility])([facility]) OUTPATIENT [id number] CONFIRM ATION U/S ISMAEL GARCIA 08/31 Released w/o Limitations [facility] [facility])([facility]) [facility] [facility])([facility]) OUTPATIENT [id number] CONFIRM ATION U/S ISMAEL GARCIA 09/07 Released w/o Limitations [facility] [facility])([facility]) [facility] [facility])([facility]) OUTPATIENT [id number] EDC:31O CT 9 WEEKS CLAYTON BRYAN 09/10 Released w/o Limitations [facility]) OUTPATIENT [id number] [facility] U/S TATO AVILA 09/14 Released w/o Limitations [facility] [facility])([facility]) [facility] [id number] [facility] OB physica l BENJAMIN Apr 14, 2010 KEYONA ESPARZA 09/28 Released w/o Limitations [employer] [facility])([facility]) [facility] [facility] OUTPATIENT [id number] 17WK EDC KEYONA ESPARZA 10/29 Released w/o Limitations [employer])([facility]) [facility] [facility] OUTPATIENT [id number] 20wk edc KEYONA ESPARZA 11/28 Released w/o Limitations [employer] [facility])(Ob [facility]) [facility] [facility] OUTPATIENT [id number] 23wk edc LD MEADOWS 12/19 Released w/o Limitations [facility] [facility])(Ob [facility]) [facility] OUTPATIENT [id number] edc wks KEYONA ESPARZA 01/22 [facility]ased w/o Limitations [facility] [facility] ([facility]Obst etrics [facility]) TELE CONSULT [id number] lab result KEYONA ESPARZA 01/25 [facility] ([facility])(Ob [facility]) [facility] [place]([facility] 57) OUTPATIENT [id number] cyst on neck/no ne CLAUDE GUERRERO M 12/19 Released w/o Limitations [facility] [place]) [facility] [place] [place] 57) OUTPATIENT [id number] EPIDERM AL INCLUSI ON CYST BRIGGS III, NITIN M. 12/26 Released w/o Limitations [facility] [place]([facility] 57) [facility] [place] 57) OUTPATIENT [id number] f/u cyst drainag e on 26 December BRIGGS III, NITIN M. 12/30 Released w/o Limitations [facility] [place] 57) [facility] [place] 57) OUTPATIENT [id number] f/u BRIGGS III, NITIN M. 01/06 Released w/o Limitations [facility] [place] 57) [facility] [place] 57) OUTPATIENT [id number] f/u cyst on neck BRIGGS III, NITIN M. 03/10 Released w/o Limitations [facility] [place] 57) [facility] [place] 57) OUTPATIENT [id number] Excise Cyst on neck BRIGGS III, NITIN M. 03/26 Released w/o Limitations [facility] [place] 57) [place] [employer] [facility] 57) OUTPATIENT [id number] Suture removal ANDREA GARCIA 04/02 Released w/o Limitations [place] 57) [place]Gen[facility] [place] [facility] 57) TELE CONSULT [id number] TOMADELITA LozoyaIN 04/03 [place]Gene [facility] [facility] 57) [place] 57[place] OUTPATIENT [id number] PABLO López 08/17 Released w/o Limitations [place] [place] [facility] [place] [facility] OUT[facility]IENT [id number] Notes Entered by: Arpita MCFADDEN 15 Sep 2011 0923 ------- ------- ------- ------- -- HCG MONSE JOHNSON 09/14 Released w/o Limitations [place] 57) [place](Ob) TELE CONSULT [id number] 17 weeks pregnan t needs transfe r-in appt JUNIORIONA 12/10 [place](Ob) [place] [address] DIRECT TO [facility] FROM OTHER THAN ER OR [facility] [id number] TAYE VIGIL 01/04 RETURNED TO [facility] [place] [address] Procedures Combined list of: 1) Procedures from [...] HR/SOON APT;5-10 MIN MED DIS 12/11/19 12 [facility] SCREENING PAPANICOLAOU SMEAR; OBTAINING, PREPARING AND CONVEYANCE OF CERVICAL OR VAGINAL SMEAR TO LABORATORY 09/17/19 06 [facility]D SPECIAL REPORTS SUCH INSURANCE FORMS, MORE THAN THE INFORMATION CONVEYED IN THE USUAL MEDICAL COMMUNICATIONS OR STANDARD REPORTING FORM 11/13/19 DoD SPECIAL REPORTS SUCH INSURANCE FORMS, MORE THAN THE INFORMATION CONVEYED IN THE USUAL MEDICAL COMMUNICATIONS OR STANDARD REPORTING FORM 11/12/19 DoD SKIN TEST; TUBERCULOSIS, INTRADERMAL 11/11/19 DoD EDUCATIONAL SUPPLIES, SUCH BOOKS, TAPES, AND PAMPHLETS, FOR THE PATIENT'S EDUCATION AT COST TO PHYSICIAN OR OTHER QUALIFIED HEALTH PROGRAM MANAGEMENT ANALYST 10/27/19 DoD SPECIAL REPORTS SUCH INSURANCE FORMS, MORE THAN THE INFORMATION CONVEYED IN THE USUAL MEDICAL COMMUNICATIONS OR STANDARD REPORTING FORM 09/29/19 DoD POSTOPERATIVE FOLLOW-UP VISIT, NORMALLY INCLUDED IN THE SURGICAL PACKAGE, INDICATE THAT EVALUATION & MANAGEMENT SERVICE WAS PERFORMED DURING A POSTOPERATIVE PERIOD REASON RELATED ORIGINAL PROCEDURE 04/02/20 11 [facility] EXCISION, BENIGN LESION INCLUDING MARGINS, EXCEPT SKIN [...] PERIOD REASON RELATED ORIGINAL PROCEDURE 12/31/19 11 [facility] INCISION AND DRAINAGE OF ABSCESS (EG, CARBUNCLE, SUPPURATIVE HIDRADENITIS, CUTANEOUS OR SUBCUTANEOUS ABSCESS, CYST, FURUNCLE, OR PARONYCHIA); SIMPLE OR SINGLE 12/27/19 11 [facility] EDUCATIONAL SUPPLIES, SUCH BOOKS, TAPES, AND PAMPHLETS, FOR THE PATIENT'S EDUCATION AT COST TO PHYSICIAN OR OTHER QUALIFIED HEALTH PROGRAM MANAGEMENT ANALYST 10/24/19 04 DoD SCREENING PAPANICOLAOU SMEAR; OBTAINING, PREPARING AND CONVEYANCE OF CERVICAL OR VAGINAL SMEAR TO LABORATORY 09/27/19 04 [facility] WOUND CLEANSERS, ANY TYPE, ANY SIZE 05/17/20 03 DoD SKIN TEST; TUBERCULOSIS, INTRADERMAL 11/29/19 [facility] SKIN TEST; TUBERCULOSIS, INTRADERMAL 11/26/19 03 [facility] WEARABLE ECG RHYTHM DERIVED MONITOR FOR 24 HR,CONT ORIG WAVEFORM RECORD & STORE W/O SUPERIMPOSIT SCNING UTILIZING DEVICE CAPABLE PRODUCING FULL MINI PRINTOUT; INC RECORD,MICROPROC ANAL,PHYS REV & INT 09/16/19 [facility] PHYS/OTH QUALIFIED HEALTH PROGRAM MANAGEMENT ANALYST QUALIFIED,EDUCATION,TR AIN,LICENSURE/REGULATI ON (WHEN APPLICABLE) EDUC SER RENDERED TO PATS IN A GRP SETTING (EG,,OBESITY,O R DIABETIC INSTRUCT) 01/29/20 [facility] PURE TONE AUDIOMETRY (THRESHOLD); AIR ONLY 12/28/19 [facility] SKIN TEST; TUBERCULOSIS, INTRADERMAL 12/22/19 [facility] SCREENING PAPANICOLAOU SMEAR; OBTAINING, PREPARING AND CONVEYANCE OF CERVICAL OR VAGINAL SMEAR TO LABORATORY 10/09/19 [facility] SUBSEQ CARE VISIT () [EXCLS:PATIENTS WHO ARE SEEN FOR A CONDITION UNREL TO / CARE (EG,AN UP RESPIR INFECT;PATIENTS SEEN FOR CONSULTATION ONLY,NOT FOR CONT CARE)] 01/23/20 10 [facility] SUBSEQ CARE VISIT () [EXCLS:PATIENTS WHO ARE SEEN FOR A CONDITION UNREL TO / CARE (EG,AN UP RESPIR INFECT;PATIENTS SEEN FOR CONSULTATION ONLY,NOT FOR CONT CARE)] 12/20/19 10 [facility] SUBSEQ CARE VISIT () [EXCLS:PATIENTS WHO ARE SEEN FOR A CONDITION UNREL TO / CARE (EG,AN UP RESPIR INFECT;PATIENTS SEEN FOR CONSULTATION ONLY,NOT FOR CONT CARE)] 11/29/19 10 [facility] SUBSEQ CARE VISIT () [EXCLS:PATIENTS WHO ARE SEEN FOR A CONDITION UNREL TO / CARE (EG,AN UP RESPIR INFECT;PATIENTS SEEN FOR CONSULTATION ONLY,NOT FOR CONT CARE)] 10/30/19 10 [facility] SCREENING PAPANICOLAOU SMEAR; OBTAINING, PREPARING AND CONVEYANCE OF CERVICAL OR VAGINAL SMEAR TO LABORATORY 09/29/19 10 [facility] ULTRASOUND, TRANSVAGINAL 09/08/19 10 [facility] ULTRASOUND, UTERUS, REAL TIME WITH IMAGE DOCUMENTATION, LIMITED (EG, HEART BEAT, PLACENTAL LOCATION, POSITION AND/OR QUALITATIVE AMNIOTIC FLUID VOLUME), 1 OR MORE FETUSES 09/01/19 10 [facility] ULTRASOUND, TRANSVAGINAL 08/25/19 10 [facility] ULTRASOUND, UTERUS, REAL TIME WITH IMAGE DOCUMENTATION,TRANSVAG INAL 08/18/19 10 DoD TELE ASSESS & MGT SRV [...] REAL TIME WITH IMAGE DOCUMENTATION; COMPLETE 11/15/19 09 [facility] TELE ASSESS & MGT SRV PROV QUAL NONPHYS HLTH CARE PRO TO EST PAT,PARENT,GUARD NOT ORIG REL ASSESS & MGT SRV PROV W/IN PREV 7 DAYS NOR LEAD ASSESS & MGT SRV/PX W/IN NXT 24 HR/SOON APT;5-10 MIN MED DIS 11/09/19 09 [facility] SCREENING PAPANICOLAOU SMEAR; OBTAINING, PREPARING AND CONVEYANCE OF CERVICAL OR VAGINAL SMEAR TO LABORATORY 11/02/19 09 [facility] PHYS/OTH QUALIFIED HEALTH PROGRAM MANAGEMENT ANALYST QUALIFIED,EDUCATION,TR AIN,LICENSURE/REGULATI ON (WHEN APPLICABLE) EDUC SER RENDERED TO PATS IN A GRP SETTING (EG,,OBESITY,O R DIABETIC INSTRUCT) 10/19/19 09 [facility] SCREENING PAPANICOLAOU SMEAR; OBTAINING, PREPARING AND CONVEYANCE OF CERVICAL OR VAGINAL SMEAR TO LABORATORY 07/07/19 09 [facility] BIOPSY OF SKIN, SUBCUTANEOUS TISSUE AND/OR MUCOUS MEMBRANE (INCLUDING SIMPLE CLOSURE), UNLESS OTHERWISE LISTED; SINGLE LESION 12/07/19 08 [facility] ARTIFICIAL INSEMINATION; INTRA-UTERINE 11/12/19 07 [facility] ULTRASOUND, TRANSVAGINAL 11/06/19 07 [facility] ARTIFICIAL INSEMINATION; INTRA-UTERINE 09/05/19 07 [facility] ULTRASOUND, PELVIC (NONOBSTETRIC), REAL TIME WITH IMAGE DOCUMENTATION; LIMITED OR FOLLOW-UP (EG, FOR FOLLICLES) 09/03/19 07 [facility] UNLISTED THERAPEUTIC, PROPHYLACTIC OR DIAGNOSTIC INTRAVENOUS OR INTRA-ARTERIAL INJECTION OR INFUSION 08/07/19 07 [facility] ULTRASOUND, TRANSVAGINAL 08/07/19 07 [facility] UNLISTED PSYCHIATRIC SERVICE OR PROCEDURE 02/18/20 06 [facility] INTRODUCTION OF NEEDLE OR INTRACATHETER, VEIN 01/29/20 06 [facility] Non-Physician Phone Call To Patient/Provider Brief (5-10min) Non-Physician Phone Call To Patient/Provider Brief (5-10min) [id number] 12/11/19 12 AILES, CRYSTAL A DoD Excision Of Lesion Neck Benign 2.1 to 3cm Excision Of Lesion Neck Benign 2.1 to 3cm [id number] 03/26/20 11 NITIN BRIGGS III Incision And Drainage Of Skin Absce Incision And Drainage Of Skin Abscess [id number] 12/27/19 11 NITIN BRIGGS III OB Services [...] 10 KEYONA ESPARZA Trans-Vaginal Ultrasound Trans-Vaginal Ultrasound [id number] 09/08/19 10 ISMAEL GARCIA Ultrasound Obstetric Limited Evaluation Ultrasound Obstetric Limited Evaluation [id number] 09/01/19 10 ISMAEL GARCIA OB Services Antepartum Care Only First Visit, With Report OB Services Antepartum Care Only First Visit, With Report [id number] 09/01/19 10 ISMAEL GARCIA Ultrasound [place] [id number] 09/01/19 10 ISMAEL GARCIA Trans-Vaginal Ultrasound Trans-Vaginal Ultrasound 82705 08/26/19 10 ISMAEL GARCIA Ultrasound [place] [address] 08/18/19 10 TATO MANNING Non-Physician Phone Call To Patient/Provider Brief (5-10min) Non-Physician Phone Call To Patient/Provider Brief (5-10min) [id number] 08/09/19 10 UGO MULLINS Non-Physician Phone Call To Patient/Provider Brief (5-10min) Non-Physician Phone Call To Patient/Provider Brief (5-10min) [id number] 08/06/19 10 UGO MULLINS Non-Physician Phone Call To Patient/Provider Brief (5-10min) Non-Physician Phone Call To Patient/Provider Brief (5-10min) [id number] 05/14/20 09 UGO MULLINS Non-Physician Phone Call To Patient/Provider Brief (5-10min) Non-Physician Phone Call To Patient/Provider Brief (5-10min) [id number] 05/01/20 09 UGO MULLINS Artificial Insemination Intrauterine Artificial Insemination Intrauterine [id number] 04/17/20 09 ISMAEL GARCIA Non-Physician Phone Call To Patient/Provider Brief (5-10min) Non-Physician Phone Call To Patient/Provider Brief (5-10min) [id number] 04/13/20 09 UGO MULLINS Trans-Vaginal Ultrasound Trans-Vaginal Ultrasound [id number] 04/13/20 ISMAEL GARCIA Venipuncture Venipuncture [id number] 04/13/[address]Supervised Specimen Handling / Transfer: Office To Lab -Supervised Specimen Handling / Transfer: Office To Lab [id number] 04/13/20 ISMAEL GARCIA Non-Physician Phone Call To Patient/Provider Brief (5-10min) Non-Physician Phone Call To Patient/Provider Brief (5-10min) [id number] 04/05/20 09 UGO MULLINS Non-Physician Phone Call To Patient/Provider Brief (5-10min) Non-Physician Phone Call To Patient/Provider Brief (5-10min) [id number] 03/16/20 09 UGO MULLINS Non-Physician Phone Call To Patient/Provider Brief (5-10min) Non-Physician Phone Call To Patient/Provider Brief (5-10min) [id number] 03/05/20 09 UGO MULLINS Non-Physician Phone Call To Patient/Provider Brief (5-10min) Non-Physician Phone Call To Patient/Provider Brief (5-10min) [id number] 02/01/20 09 UGO MULLINS Non-Physician Phone Call To Patient/Provider Brief (5-10min) Non-Physician Phone Call To Patient/Provider Brief (5-10min) [id number] 01/11/20 09 UGO MULLINS Non-Physician Phone Call To Patient/Provider Brief (5-10min) Non-Physician Phone Call To Patient/Provider Brief (5-10min) [id number] 01/04/20 09 UGO MULLINS Non-Physician Phone Call To Patient/Provider Brief (5-10min) Non-Physician Phone Call To Patient/Provider Brief (5-10min) [id number] 11/25/19 09 UGO MULLINS Non-Physician Phone Call To Patient/Provider Brief (5-10min) Non-Physician Phone Call To Patient/Provider Brief (5-10min) [id number] 11/21/19 09 UGO MULLINS Pelvic Ultrasound 11/15/19 09 ISMAEL GARCIA Ultrasonic Guidance Procedures Ultrasonic Guidance Procedures [id number] 11/15/19 09 ISMAEL GARCIA Saline Infusion Sonohysterography With Saline Injection Saline Infusion Sonohysterography With Saline Injection [id number] 11/15/19 09 ISMAEL GARCIA 3-D Rendering Requiring Image Postproce ing 11/15/19 09 ISMAEL GARCIA Dilation Of Cervical Canal Dilation Of Cervical Canal 20129 11/15/19 09 ISMAEL GARCIA Trans-Vaginal Ultrasound Trans-Vaginal Ultrasound [id number] 11/15/19 09 ISMAEL GARCIA Non-Physician Phone Call To Patient/Provider Brief (5-10min) Non-Physician Phone Call To Patient/Provider Brief (5-10min) [id number] 11/09/19 09 UGO MULLINS Screening papanicolaou smear; obtaining, preparing and conveyance of cervical or vaginal smear to laboratory 11/02/19 09 YAMILETH MAGALLON Screening papanicolaou smear; obtaining, preparing and conveyance of cervical or vaginal smear to laboratory 07/07/19 09 JOSE GARNETT Biopsy Skin Biopsy Skin [id number] 12/07/19 08 YAMILETH MAGALLON Replace, soft interface material, static AFO 11/12/19 07 ISMAEL GARCIA Artificial Insemination Intrauterine Artificial Insemination Intrauterine [id number] 11/12/19 07 ISMAEL GARCIA Pelvic Ultrasound Follow-Up Study 11/12/19 07 ISMAEL GARCIA Trans-Vaginal Ultrasound Trans-Vaginal Ultrasound [id number] 11/06/19 07 ISMAEL GARCIA Pelvic Ultrasound Follow-Up Study 11/06/19 07 ISMAEL GARCIA Artificial Insemination Intrauterine Artificial Insemination Intrauterine [id number] 09/06/19 07 ISMAEL GARCIA Replace, soft interface material, static AFO 09/06/19 07 ISMAEL GARCIA Pelvic Ultrasound Follow-Up Study 09/03/19 07 ISMAEL GARCIA [facility] Trans-Vaginal Ultrasound Trans-Vaginal Ultrasound [id number] 09/03/19 07 ISMAEL GARCIA [facility] Trans-Vaginal Ultrasound Trans-Vaginal Ultrasound [id number] 08/07/19 07 ISMAEL GARCIA [facility] Pelvic Ultrasound Follow-Up Study 08/07/19 07 ISMAEL GARCIA [facility] Supervised Injection Supervised Injection [id number] 08/07/19 07 UGO MULLINS [facility] Behavior Therapy Relaxation Training Behavior Therapy Relaxation Training [id number] 02/18/20 06 PIO ENCARNACION [facility] Screening papanicolaou smear; obtaining, preparing and conveyance of cervical or vaginal smear to laboratory 09/17/19 06 CAILIN PITTMAN [facility] Social History Combined list of available smoking, tobacco, and other social history from Department of Defense and Veterans Affairs facilities. Social History Type Response Date Comment Sour e This section is an empty social history section. DoD
--- OUTSIDE RECORDS SUMMARY | 2025-01-13 09:59 | XMS_ITS | Encounter Summary ---
Author Organization [facility] Address [address] [facility] [place] [address] Care Team Providers Care Instrumentation Specialist Name Role Phone Mariola Munroe MD Primary Care Provider Encounter Details Date Type Department Care Team (Late st Contact Info) Description 02/26/2024 Lab Requisition [facility] Lab [address] [facility] [place] [address] Nasim Hernández MD [facility] DERMATOLOGY [address] [place] [phone] Neoplasm of uncertain behavior of skin [...] PM CDT 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 - General Surgery [address] [place] [phone] Rodrigue Prakash MD [address] [facility] [address] [place] [address] documented as of this encounter Procedures Procedure Name Priority Date/Time Associated Diagnosis Comments DERMATOPATHOLOGY Routine 02/26/2024 12:0 0 AM CDT Neoplasm of uncertain behavior of skin documented in this encounter Results * DERMATOPATHOLOGY (02/26/2024 12:00 AM CDT) Case Report Dermatopathology Report Case: [id number] Authorizing Provider: Nasim Hernández MD Collected: 02/26/2024 12:00 AM Ordering Location: [facility] - Received: 02/29/2024 12:11 PM DermPath Lab Pathologist: Erich Lopez MD Specimen: Skin, left lateral abdomen 4 2:50 PM CDT DERMATOPATHOLOGY LABORATORY Final Diagnosis Specimen A. 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 Chetan Lopez. These tests need not be, and therefore are not, approved by the [place] Food and Drug Administration. The tests are used for clinical purposes. Billing Codes Specimen Charges Stain Charges 08806 1 4 2:50 PM CDT DERMATOPATHOLOGY LABORATORY Embedded Images 4 2:50 PM CDT DERMATOPATHOLOGY LABORATORY Pathology/Cytolog y TISSUE SPECIMEN FROM SKIN / Unknown 02/26/2024 02/29/2024 12:11 PM CDT us Nasim Hernández MD LAB - PATHOLOGY/CYTOLOGY GUSTAVO MARTINEZ Final Result DERMATOPATHOLOGY LABORATORY [facility] - Department of Dermatology [facility] [address] [place] [address], [address] [place] [address], [facility] [phone] documented in this encounter Visit Diagnoses Diagnosis Neoplasm of uncertain behavior of skin documented in this encounter Care Teams Instrumentation Specialist Relationship Specialty Start Date End Date Mariola Munroe MD [address] [facility] [address] [place] [address] PCP - General Family Medicine 12/04/23 documented as of this encounter
--- OUTSIDE RECORDS SUMMARY | 2025-01-13 09:59 | XMS_ITS | Patient Health Record ---
Author Organization [facility] Address [address] [place], [place] [id number] Care Team Providers Care Floor Layer Helper Name Role Phone Mariola Munroe Unavailable Unavaila MITA Rodriguez Unavailable [phone] Allergies No Known Allergies Reason For Referral Reason [facility] (Establishe d Patient) 06/29/2024 THE REFERRAL IS UNDER [facility] KLL PER [facility] REFERRALS END 12/12/2024. KLL Diagnosis 1 Paresthesia of skin (R20.2) Referred Provider Specialty Podiatry Referral Priority Routine Medications Medication SIG (Take, Route, Frequency, Duration) Notes Start Date End Date Status Atorvastatin Calcium 10 MG Oral; Duration: 90 Days Active Cecily 0.35 MG Oral; Duration: 84 Days Active Citalopram Hydrobromide 10 MG Oral; Duration: 90 Days Acti ve Social History Tobacco Use: Social History Observation Description Date Details (start date - stop date) Never Smoker NA - NA Tobacco Control (Standard) Question Answer Notes Tobacco use: Nonsmoker Vital Signs Height-cm 162.56 cm 06/09/2024 Weight-kg 68.04 kg 06/09/2024 Height 64 in 06/09/2024 Weight 150 lbs 06/09/2024 BMI 25.74 kg/m2 06/09/2024 Encounters Encounter Location Date Provider Diagnosis [facility] [address] [place], [place] [id number] 06/09/2024 MITA WALL Hallux limitus of right [...] Insured Coverage Start Date Coverage End Date [facility] [address] [place] [address] [id number] PERLA MONTES DE OCA Spouse - patient is the spouse of the insured Medical (General) History Medical History History ICD Code kidney stones Surgical History Surgery Date(Month/Year) kidney stone removed
--- OUTSIDE RECORDS SUMMARY | 2025-01-13 09:59 | XMS_ITS | Clinical Summary ---
Author Organization [facility] Address [address] [place] [address] Care Team Providers Care Freight Manager Name Role Phone Mariola Munroe MD Primary Care Provider Source Comments [facility],non-owned Affiliates and Associated Physician Practices is amultiple site organization consisting of ambulatory clinics and hospital sitesin [place], [place], [place] and [place]. This disclosure is being madepursuant to the Care Everywhere program and may not contain all information available regarding this patient. Last updated 18.[facility] [employer] Allergies No known active allergies Medications * Be aware that medications may not be up to date on this document. Alwaysverify current medications with the patient. Citalopram Hydrobromide (CELEXA PO) Active Levonorgest-Eth Estrad 91-Day (SEASONIQUE PO) Acti ve atorvastatin (Lipitor) 10 MG tablet 3 Active Cholecalciferol (vitamin D3) 1.25 MG (65956 UT) capsule TAKE ONE CAPSULE BY MOUTH ONE DAY A WEEK 5 Active Cecily 0.35 MG tablet Oral for 84 Days Active Slynd 4 MG TABS tablet 5 Active traMADol (Ultram) 50 MG tablet Take 1 (one) tablet by mouth every 6 hours as needed for Pain 12 tablet 4 01/10/20 25 Discontinu ed(Tx Complete) Active Problems Problem Noted Date Diagnosed Date Malignant melanoma of left knee 12/07/2023 Encounters Date Type Department Care Team Description 01/09/2025 1:15 PM CDT Office Visit [facility] - General Surgery [address] [place] [phone] Rodrigue Prakash MD Malignant melanoma of left knee (HCC) (Primary Dx) 01/09/2025 Travel 01/08/2025 Orders Only [facility] - General Surgery [address] [place] [phone] Rodrigue Prakash MD Malignant melanoma of left knee (HCC) from Last 3 Months Social History Tobacco Use Types Packs/Day Years Used Date Smoking Tobacco: Never Smokeless Tobacco: Never Tobacco Cessation:Counseling Given: No Alcohol Use Standard Drinks/Week Comments Never 0 [...] PM CDT 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 Gender Identity Female 11/26/2023 4:47 PM CDT Sexual Orientation Not on file Last Filed Vital Signs Vital Sign Reading Time Taken Comments Blood Pressure 120/80 01/09/2025 1:02 PM CDT Pulse 80 01/09/2025 1:02 PM CDT Temperature 36.7 C (98.1 F) 01/09/2025 1:02 PM CDT Respiratory Rate 6 12/24/2023 10:35 AM CDT Oxygen Saturation 97% 01/09/2025 1:02 PM CDT Inhaled Oxygen Concentration - - Weight 68 kg (150 lb) 01/09/2025 1:02 PM CDT Height 162.6 cm (5' 4) 01/09/2025 1:02 PM CDT Body Mass Index 25.75 01/09/2025 1:02 PM CDT Plan of Treatment Upcoming Encounters Date Type Department Care Team (Late st Contact Info) Description 01/08/2026 1:00 PM CDT Office Visit [facility] - General Surgery [address] [place] [address] Rodrigue Prakash MD [address] [facility] [address] [place] [address] Health Maintenance Due Date Last Done Comments COLOGUARD (AGES 45-75) - COL ON CA SCREENING 1978 COLON MONITORING 1978 COLONOSCOPY - COLON CA SCREENING 1978 CT COLONOGRAPHY - COLON CA SCREENING 1978 Colorectal Cancer Screening 1978 FIT - COLON CA SCREENING 1978 FLEX SIG - COLON CA SCREENING 1978 MAMMOGRAM 1978 HIV SCREENING 1993 HEPATITIS C SCREENING 06/02/1996 DTAP/TDAP/TD VACCINES (1 - Tdap) 1997 HEPATITIS B VACCINE (1 of 3 - 19+ 3-dose series) 1997 PAP SMEAR 1999 COVID-19 VACCINE (1 - 2023-2 5 season) 2024 DEPRESSION SCREENING 06/15/2024 INFLUENZA VACCINE (#1) 2025 SCREENING FOR DIABETES 12/20/2026 12/21/2023 ZOSTER [...] 7 - 26 mg/dL 12/21/2023 5:20 PM [facility] Creatinine 0.71 0.56 - 0.96 mg/dL 12/21/2023 5:20 PM [facility] Sodium 141 136 - 145 mmol/L 12/21/2023 5:20 PM [facility] Potassium 4.0 3.5 - 4.5 mmol/L 12/21/2023 5:20 PM [facility] Chloride 107 98 - 107 mmol/L 12/21/2023 5:20 PM [facility] CO2 24 22 - 29 mmol/L 12/21/2023 5:20 PM [facility] Glucose 74 70 - 115 mg/dL 12/21/2023 5:20 PM [facility] Calcium 9.8 8.4 - 10.2 mg/dL 12/21/2023 5:20 PM [facility] Protein Total 7.8 6.0 - 8.3 g/dL 12/21/2023 5:20 PM [facility] Albumin 4.6 3.4 - 5.0 g/dL 12/21/2023 5:20 PM [facility] Bilirubin Total 0.7 0.2 - 1.2 mg/dL 12/21/2023 5:20 PM [facility] Alkaline Phosphatase 88 40 - 150 U/L 12/21/2023 5:20 PM [facility] ALT 58(H) 5 - 55 U/L 12/21/2023 5:20 PM [facility] AST 23 5 - 34 U/L 12/21/2023 5:20 PM [facility] Anion Gap 10 6 - 16 12/21/2023 5:20 PM [facility] BUN/Creatinine Ratio 17 7 - 23 12/21/2023 5:20 PM [facility] Osmolality Calculated 290 275 - 295 mOsm/kg 12/21/2023 5:20 PM [facility] Albumin/Globulin Ratio 1.4 1.1 - 2.3 12/21/2023 5:20 PM [facility] eGFR by CKD-EPI >90 >=90 mL/min/1.7 3 m2 12/21/2023 5:20 PM CDT [facility] Blood BLOOD SPECIMEN / Unknown Lab Venipuncture / Unknown 12/21/2023 3:17 PM CDT 12/21/2023 4:43 PM CDT us Rodrigue Prakash MD LAB - CHEMISTRY ORDERABLES Final Result [facility] [address] [place] [address], [facility] [phone] from Last 3 Months or Most Recently Relevant to Health Maintenance Insurance Care Teams Freight Manager Relationship Specialty Start Date End Date Mariola Munroe MD [address] [facility] [address] [place] [address] PCP - General Family Medicine 12/04/23
== END 2025-01-13 09:54 | disposition home or self-care (01) ==
PROVIDERS: PCP Family Medicine; Visit Provider Surgery
DX: C43.72 Malignant melanoma of left lower limb, including hip (principal)
CPT/HCPCS: 71046

== ENCOUNTER 2025-03-15 09:16 | Outpatient (CLI) | payer OTHER, SELFPAY ==
--- OUTSIDE RECORDS SUMMARY | 2025-03-15 09:45 | XMS_ITS | Clinical Summary ---
Author Organization [facility] Address [address] [facility] [place] [address] Care Team Providers Care Cylinder Block Hole Reliner Name Role Phone Mariola Munroe MD Primary Care Provider Source Comments [facility],non-owned Affiliates and Associated Physician Practices is amultiple site organization consisting of ambulatory clinics and hospital sitesin [place] and [place]. This disclosure is being madepursuant to the Care Everywhere program and may not contain all information available regarding this patient. Last updated 18.[facility] Allergies No known active allergies Medications * Be aware that medications may not be up to date on this document. Alwaysverify current medications with the patient. Citalopram Hydrobromide (CELEXA PO) Active Levonorgest-Eth Estrad 91-Day (SEASONIQUE PO) Acti ve atorvastatin (Lipitor) 10 MG tablet 3 Active Cholecalciferol (vitamin D3) 1.25 MG (54901 UT) capsule TAKE ONE CAPSULE BY MOUTH ONE DAY A WEEK 5 Active Cecily 0.35 MG tablet Oral for 84 Days Active Slynd 4 MG TABS tablet 5 Active Active Problems Problem Noted Date Diagnosed Date Malignant melanoma of left knee 12/07/2023 Encounters Date Type Department Care Team Description 01/09/2025 1:15 PM CDT Office Visit [facility] - General Surgery [address] [place] [phone] Rodrigue Prakash MD Malignant melanoma of left knee (HCC) (Primary Dx) 01/09/2025 Travel 01/08/2025 Orders Only [facility] - General Surgery [address] [place] [phone] Rodrigue Prakash MD Malignant melanoma of left [...] PM CDT Legal Sex Female 3:52 AM LICENSED PHYSICAL THERAPIST ASSISTANT Gender Identity Female 11/26/2023 4:47 PM CDT [...] Description 01/08/2026 1:00 PM CDT Office Visit [facility] - General Surgery [address] [place] [address] Rodrigue Prakash MD [address] [place] [address] [place] [address] Health Maintenance Due Date Last Done Comments [...] 19+ 3-dose series) 1997 PAP SMEAR 1999 DEPRESSION SCREENING 06/15/2024 COVID-19 VACCINE (1 - 2023-2 5 season) 2025 INFLUENZA VACCINE (#1) 2025 SCREENING FOR DIABETES [...] 7 - 26 mg/dL 12/21/2023 5:20 PM CDT [facility] Creatinine 0.71 0.56 - 0.96 mg/dL 12/21/2023 5:20 PM [facility] Sodium 141 136 - 145 mmol/L 12/21/2023 5:20 PM [facility] Potassium 4.0 3.5 - 4.5 mmol/L 12/21/2023 5:20 PM [facility] Chloride 107 98 - 107 mmol/L 12/21/2023 5:20 PM [facility] CO2 24 22 - 29 mmol/L 12/21/2023 5:20 PM [facility] Glucose 74 70 - 115 mg/dL 12/21/2023 5:20 PM [facility] Calcium 9.8 8.4 - 10.2 mg/dL 12/21/2023 5:20 PM [facility] Protein Total 7.8 6.0 - 8.3 g/dL 12/21/2023 5:20 PM [facility] Albumin 4.6 3.4 - 5.0 g/dL 12/21/2023 5:20 PM [facility] Bilirubin Total 0.7 0.2 - 1.2 mg/dL 12/21/2023 5:20 PM [facility] Alkaline Phosphatase 88 40 - 150 U/L 12/21/2023 5:20 PM [facility] ALT 58(H) 5 - 55 U/L 12/21/2023 5:20 PM [facility] AST 23 5 - 34 U/L 12/21/2023 5:20 PM [facility] Anion Gap 10 6 - 16 12/21/2023 5:20 PM [facility] BUN/Creatinine Ratio 17 7 - 23 12/21/2023 5:20 PM [facility] Osmolality Calculated 290 275 - 295 mOsm/kg 12/21/2023 5:20 PM [facility] Albumin/Globulin Ratio 1.4 1.1 - 2.3 12/21/2023 5:20 PM [facility] eGFR by CKD-EPI >90 >=90 mL/min/1.7 3 m2 12/21/2023 5:20 PM [facility] Blood BLOOD SPECIMEN / Unknown Lab Venipuncture / Unknown 12/21/2023 3:17 PM CDT 12/21/2023 4:43 PM CDT us Rodrigue Prakash MD LAB - CHEMISTRY ORDERABLES Final Result [facility] [address] [place] [address], [place] [phone] from Last 3 Months or Most Recently Relevant to Health Maintenance Insurance Care Teams Cylinder Block Hole Reliner Relationship Specialty Start Date End Date Mariola Munroe MD [address] [facility] [address] [address] [place] [address] PCP - General Family Medicine 12/04/23
--- OUTSIDE RECORDS SUMMARY | 2025-03-15 09:45 | XMS_ITS | Encounter Summary ---
Author Organization [facility] Address [address] [facility] [place] [address] Care Team Providers Care Cardiac Sonographer Name Role Phone Mariola Munroe MD Primary Care Provider Encounter Details Date Type Department Care Team (Late st Contact Info) Description 02/26/2024 Lab Requisition [facility] Lab [address] [facility] [place] [address] Nasim Hernández MD [facility] DERMATOLOGY [address] [place] [phone] Neoplasm of uncertain behavior of skin [...] PM CDT 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 Gender Identity Female 11/26/2023 4:47 [...] Description 01/08/2026 1:00 PM CDT Office Visit [facility] Physician [facility] - General Surgery [address] [place] [phone] Rodrigue Prakash MD [address] [facility] [address] [place] [address] documented as of this encounter Procedures Procedure Name Priority Date/Time Associated Diagnosis Comments DERMATOPATHOLOGY Routine 02/26/2024 12:0 0 AM CDT Neoplasm of uncertain behavior of skin documented in this encounter Results * DERMATOPATHOLOGY (02/26/2024 12:00 AM CDT) Case Report Dermatopathology Report Case: [id number] Authorizing Provider: Nasim Hernández MD Collected: 02/26/2024 12:00 AM Ordering Location: [facility] - Received: 02/29/2024 12:11 PM DermPath Lab [...] characteristic determined by the Dermatopathology Laboratory at [facility], directed by Dr. Chetan Lopez. These tests need not be, and therefore are not, approved by the [place] Food and Drug Administration. The tests are used for clinical purposes. Billing Codes Specimen Charges Stain Charges 37669 1 4 2:50 PM CDT DERMATOPATHOLOGY LABORATORY Embedded Images 4 2:50 PM CDT DERMATOPATHOLOGY LABORATORY Pathology/Cytolog y TISSUE SPECIMEN FROM SKIN / Unknown 02/26/2024 02/29/2024 12:11 PM CDT us Nasim Hernández MD LAB - PATHOLOGY/CYTOLOGY GUSTAVO MARTINEZ Final Result DERMATOPATHOLOGY LABORATORY [facility] - Department of Dermatology [facility] Medicine [address] [place] [address], [address] [place] [address], [facility] [phone] documented in this encounter Visit Diagnoses Diagnosis Neoplasm of uncertain behavior of skin documented in this encounter Care Teams Cardiac Sonographer Relationship Specialty Start Date End Date Mariola Munroe MD [address] [facility] [address] [place] [address] PCP - General Family Medicine 12/04/23 documented as of this encounter
[2025-03-15 12:57] LABS: Hematocrit 42.5 % (37.0-47.0); Hemoglobin 13.8 g/dL (12.0-15.0); Immature Granulocyte Percent A 0.4 % (0-0.5); Lymphocytes Absolute Auto 1.54 K/mm3 (0.9-3.2); Mean Corpuscular HGB Conc 32.5 g/dl (32-36); Mean Corpuscular Hemoglobin 30.0 pg (26-34); Mean Corpuscular Volume 92.4 fl (80-100); Nucleated Red Blood Cells Absolute Auto 0.000 K/mm3 (0.0-0.012); Nucleated Red Blood Cells Perc 0.0 % (0.0-0.2); Platelet Count Result 212 k/mm3 (150-375); Red Blood Count 4.60 M/mm3 (4.2-5.4); White Blood Count 5.0 K/mm3 (4.5-10.0)
[2025-03-15 13:10] LABS: Alanine Aminotransferase 39 U/L (6-35); Albumin Level 4.8 g/dL (3.5-5.1); Alkaline Phosphatase 78 U/L (38-126); Anion Gap 10 mmol/L (4-12); Aspartate Amino Transferase 43 U/L (14-36); Bilirubin,Total 0.7 mg/dL (0.2-1.3); Blood Urea Nitrogen 13 mg/dL (7-17); Calcium 9.5 mg/dL (8.4-10.2); Carbon Dioxide 25 mmol/L (22-30); Chloride 103 mmol/L (98-107); Cholesterol 130 mg/dL (0-200); Estimated Glomerular Filt Rate > 60; Glucose 89 mg/dL (65-110); HDL Direct 50 mg/dL; Potassium 4.8 mmol/L (3.4-5.0); Sodium 138 mmol/L (137-145); Total Protein 8.0 g/dL (6.3-8.2); Triglycerides 68 mg/dL (<150)
== END 2025-03-15 09:17 | disposition home or self-care (01) ==
LOC: ANHGOSHLAB 09:17
PROVIDERS: PCP Nurse Practitioner Family; Visit Provider Nurse Practitioner Family
DX: E78.2 Mixed hyperlipidemia (principal); E55.9 Vitamin D deficiency, unspecified
CPT/HCPCS: 36415; 80053; 80061; 82306; 85025